=== PATIENT | female | born 1955 | race Caucasian/White ===

== ENCOUNTER → 2019-07-08 14:58 | Outpatient (CLI) | payer MEDICARE, SELFPAY ==
--- NOTE | ~2019-07-08 | XR_ITS ---
EXAMINATION: XR abdomen/kub 1V INDICATION: Migration of pancreatic stent TECHNIQUE: Supine views of the abdomen were obtained on 2 radiographs. COMPARISON: None FINDINGS: The bowel gas pattern is normal. No definite radiopaque stent is identified in the abdomen. There are no dilated loops of bowel. Rim calcification in the right upper quadrant with cholelithias is. IMPRESSION: 1. Pancreatic stent is not identified. Reviewed, dictated and finalized at location A.
== END ==
PROVIDERS: PCP Family Medicine
DX: T85.528A Displacement of other gastrointestinal prosthetic devices, implants and grafts, initial encounter (principal)
CPT/HCPCS: 74018

== ENCOUNTER → 2020-05-22 13:15 | Outpatient (CLI) | payer MEDICARE, SELFPAY ==
--- NOTE | ~2020-05-22 | XR_ITS ---
. EXAMINATION: XR facial bones min 3V DATE: 05/22/2020 14:11 INDICATION: Face injury. TECHNIQUE: 4 views of the facial bones were obtained. COMPARISON: PET/CT 12/06/2018 FINDINGS: There is leftward deviation of the nasal septum. No fracture. IMPRESSION: 1. No fracture. Reviewed, dictated and finalized at location A. ARCH ASSOCIATE IMPRESSION: 1. No fracture.
--- NOTE | ~2020-05-22 | XR_ITS ---
EXAMINATION: XR orbits min 4V DATE: 05/22/2020 14:11 INDICATION: Face injury. TECHNIQUE: 4 views of the orbits were obtained. COMPARISON: PET/CT 12/06/2018 FINDINGS: There is leftward deviation of the nasal septum. No fracture. IMPRESSION: 1. No fracture. Reviewed, dictated and finalized at location A. LOGY TEACHER IMPRESSION: 1. No fracture.
== END ==
PROVIDERS: PCP Family Medicine; Visit Provider Family Medicine
DX: Z91.81 History of falling (principal)
CPT/HCPCS: 70150; 70200

== ENCOUNTER 2021-07-29 11:53 | Emergency (ER) | payer MEDICARE, SELFPAY ==
[2021-07-29] VITALS (27 sets, daily range): BP systolic 115–162; BP diastolic 61–111; PULSE 79–111; RESP 16–28; TEMP 36.3; O2SAT 92–100
--- NOTE | ~2021-07-29 | XR_ITS ---
EXAMINATION: XR chest 1V portable EXAM DATE: 07/29/2021 12:08 INDICATION: SOB, sore throat. TECHNIQUE: Portable AP frontal chest x-ray was obtained. Comparison is made to prior examination from 10/09/2018. FINDINGS: Calcified left pleural plaques. The lungs are clear. There are no pleural effusions. Card iac silhouette is prominent but magnified on this AP technique. There is no pneumothorax suspected. The bones and soft tissues are unremarkable. There is no significant interval change. IMPRESSION: No acute cardiopulmonary findings. Reviewed, dictated and finalized at location A.
--- NOTE | 2021-07-29 11:56 | ECG_ITS ---
Measurements Intervals [place] Rate: 86 P: 37 OK: 136 QRS: -1 QRSD: 98 T: 38 QT: 351 QTc: 421 Interpretive Statements SINUS RHYTHM INCOMPLETE RIGHT BUNDLE BRANCH BLOCK [90+ ms QRS DURATION, TERMINAL R IN V1/V2, 40+ ms S IN I/aVL/V4/V5/V6] MINIMAL VOLTAGE CRITERIA FOR LVH, CONSIDER NORMAL VARIANT [MEETS CRITERIA IN ONE OF: R(aVL), S(V1), R(V5), R(V5/V6)+S(V1)] NO PREVIOUS ECG AVAILABLE FOR COMPARISON Electronically Signed On 07-29-2021 18:56:34 CDT by Lis Amos M.D.
[2021-07-29 12:19] LABS: Hematocrit 35.4 % (37.0-47.0); Hemoglobin 10.9 g/dL (12.0-15.0); Mean Corpuscular HGB Conc 30.8 g/dl (32-36); Mean Corpuscular Hemoglobin 26.3 pg (26-34); Mean Corpuscular Volume 85.3 fl (80-100); Mean Platelet Volume 9.6 fl (7.4-10.4); Platelet Count Result 292 k/mm3 (150-375); Red Blood Count 4.15 M/mm3 (4.2-5.4); White Blood Count 15.6 K/mm3 (4.5-10.0)
[2021-07-29 12:30] LABS: Alanine Aminotransferase 14 U/L (4-35); Albumin Level 3.7 g/dL (3.5-5.1); Alkaline Phosphatase 101 U/L (38-126); Anion Gap 6 mmol/L (8-16); Aspartate Amino Transferase 19 U/L (14-36); Bilirubin,Total 0.4 mg/dL (0.2-1.3); Blood Urea Nitrogen 27 mg/dL (7-17); Calcium 8.7 mg/dL (8.4-10.2); Carbon Dioxide 24 mmol/L (22-30); Chloride 109 mmol/L (98-107); Estimated CRCL calculation 66 ml/min; Estimated Glomerular Filt Rate 56; Glucose 176 mg/dL (65-110); Potassium 3.6 mmol/L (3.4-5.0); Sodium 139 mmol/L (137-145)
[2021-07-29 12:32] LABS: Band Neutrophils Percent 1 % (0-6); Basophils Absolute Manual 0.15 K/mm3 (0.0-0.1); Basophils Percent Manual 1 % (0-1); Eosinophils Absolute Manual 0.15 K/mm3 (0.02-0.5); Eosinophils Percent Manual 1 % (0-4); Lymphocytes Absolute Manual 0.46 K/mm3 (1.1-4.5); Monocytes Absolute Manual 0.15 K/mm3 (0.1-0.90); Monocytes Percent Manual 1 % (3-9); Neutrophils Absolute Manual 14.66 K/mm3 (1.7-7.2); Neutrophils Percent Manual 93 % (46-73); Platelet Estimate Adequate (Adequate); Total Cells Counted 100
[2021-07-29] MEDS: ALBUTEROL SULFATE NEB 2.5 MG/0.5 ML INH 15 MG INHALATION (12:51)
[2021-07-29] MEDS: IPRATROPIUM BR 0.02% INH SOLN 0.5 MG/2.5 ML VIAL 1.5 MG INHALATION (12:52)
--- NOTE | 2021-07-29 13:50 | ED.GENADULT ---
HPI - General Adult General Chief complaint: Upper Respiratory Infection Stated complaint: SOB Time Seen by Provider: 07/29/21 11:59 History of Present Illness HPI narrative: Patient is a 65-year-old female who presents ER with cough and dyspnea. Ongoing for 3 weeks. Reports she has been on a Z-Linus as well as doxycycline for possible pneumonia. She was also given prednisone 1 week ago. She is currently on a 12-day taper. No fevers or chills or sweats. Reports she has been using albuterol at home without improvement. No chest pain or pressure. Related Data Allergies Allergy/AdvReac Type Severity Reaction Status Date / Time morphine Allergy Unknown Unknown Verified 07/29/21 12:23 moxifloxacin Allergy Unknown Unknown Verified 07/29/21 12:23 nitrofurantoin Allergy Unknown Unknown Verified 07/29/21 12:23 Sulfa (Sulfonamide Allergy Unknown Unknown Verified 07/29/21 12:23 Antibiotics) Review of Systems Review of Systems: All systems reviewed & are unremarkable except as noted in HPI and below Constitutional: Constitutional: Denies chills, Denies fever(s) and Denies weakness ENT: Reports nasal congestion and Reports sore throat Cardiovascular: Cardiovascular: Denies chest pain, Denies rapid heart rate and Denies radiating jaw, neck or arm pain Respiratory: Respiratory: Reports cough, Reports dyspnea and Reports wheezing Gastrointestinal: Gastrointestinal: Denies abdominal pain, Denies nausea and Denies vomiting PMFSH Past Medical History Medical History (Updated 07/29/21 @ 16:17 by Jimbo Vee MD) Anxiety COPD (chronic obstructive pulmonary disease) Depression GERD (gastroesophageal reflux disease) IBS (irritable bowel syndrome) TIA (transient ischemic attack) Surgical History Surgical History (Updated 07/29/21 @ 14:06 by Jimbo Vee MD) H/O tubal ligation Social History Social History (Updated 07/29/21 @ 14:07 by Jimbo Vee MD) Social History: History of tobacco abuse Exam Narrative: GENERAL: Well-appearing, obese, and in no acute distress. HEAD: Normocephalic, atraumatic. EYES: PERRL and EOMI. ENT: Mucous membranes moist. CHEST: Expiratory wheezing with frequent coughing. No respiratory distress. HEART: Regular rate and rhythm. Normal peripheral pulses. EXTREMITIES: Normal range of motion. No edema. SKIN: Warm, dry, no rash. NEURO: Alert and oriented x3. PSYCH: Normal mood and affect. Course Course Emergency Course: Patient resting comfortably. Lungs clear after hour-long nebulizer treatment. Ambulatory without hypoxia. Patient is now requesting some Toradol and tizanidine's for backache. This will be provided. Discharge home. Vital Signs Vital signs: Vital Signs Temperature 97.3 F L 07/29/21 11:55 Pulse Rate 87 07/29/21 11:55 Respiratory Rate 16 07/29/21 11:55 Blood Pressure 136/86 07/29/21 11:55 Pulse Oximetry 96 07/29/21 11:55 Temperature 97.3 F L 07/29/21 11:55 Pulse Rate 79 07/29/21 16:50 Respiratory Rate 20 07/29/21 16:50 Blood Pressure 115/61 07/29/21 16:50 Pulse Oximetry 95 07/29/21 16:50 Medical Decision Making Vital Signs Vital Signs: Vital Signs Temperature 97.3 F L 07/29/21 11:55 Pulse Rate 87 07/29/21 11:55 Respiratory Rate 16 07/29/21 11:55 Blood Pressure 136/86 07/29/21 11:55 Pulse Oximetry 96 07/29/21 11:55 Temperature 97.3 F L 07/29/21 11:55 Pulse Rate 79 07/29/21 16:50 Respiratory Rate 20 07/29/21 16:50 Blood Pressure 115/61 07/29/21 16:50 Pulse Oximetry 95 07/29/21 16:50 Lab Data Result diagrams: 07/29/21 12:13 07/29/21 12:13 Labs: Lab Results 07/29/21 07/29/21 Range/Units 12:13 12:13 WBC 15.6 H (4.5-10.0) K/mm3 RBC 4.15 L (4.2-5.4) M/mm3 Hgb 10.9 L (12.0-15.0) g/dL Hct 35.4 L (37.0-47.0) % MCV 85.3 (80-100) fl MCH 26.3 (26-34) pg MCHC 30.8 L (32-36) g/dl RDW 18.0 H (11.5-14.5) % Pl
[2021-07-29] MEDS: KETOROLAC 15 MG/ML VIAL (*BKC) IV PUSH (16:49)
[2021-07-29] MEDS: TIZANIDINE HCL 2 MG TABLET 1 MG PO (16:50)
== END 2021-07-29 16:55 | disposition home or self-care (01) ==
PROVIDERS: Emergency Medicine; Emergency Provider Emergency Medicine; PCP Family Medicine
DX: J40 Bronchitis, not specified as acute or chronic (principal); J44.9 Chronic obstructive pulmonary disease, unspecified; K21.9 Gastro-esophageal reflux disease without esophagitis; K58.9 Irritable bowel syndrome, unspecified; Z86.73 Personal history of transient ischemic attack (TIA), and cerebral infarction without residual deficits; Z87.891 Personal history of nicotine dependence; I45.10 Unspecified right bundle-branch block
CPT/HCPCS: 36415; 71045; 80053; 85025; 93005; 94640; 96374; 99284; A9270; J1885

== ENCOUNTER 2021-11-29 11:19 | Emergency (ER) | payer MEDICARE, SELFPAY ==
[2021-11-29 11:24] VITALS: BP 157/92; PULSE 82; RESP 15; TEMP 36.7; O2SAT 99
[2021-11-29] MEDS: TETANUS,DIPHTHERIA,AC PERTUSSIS ADULT (0.5 ML) BOOSTRIX IM (13:04)
--- NOTE | 2021-11-29 13:05 | ED.WOUNDLAC ---
HPI - Wound/Laceration General Chief Complaint: Wound/Laceration Stated Complaint: laceration to R. leg Time Seen by Provider: 11/29/21 12:25 History of Present Illness HPI narrative: Patient is 66-year-old female with a history of lymphadenopathy here for evaluation of a skin tear to her right lower extremity. Patient states that she was using her walker this morning when she accidentally scraped her right lower extremity against the walker, leading to a skin tear. Bleeding controlled prior to arrival; no blood thinner use. She is unsure of her last tetanus. She states that whenever she gets the skin tears, she is placed on antibiotics. She denies any numbness or tingling in her feet, difficulty walking, fevers or chills. Related Data Allergies Allergy/AdvReac Type Severity Reaction Status Date / Time morphine Allergy Unknown Unknown Verified 11/29/21 13:28 moxifloxacin Allergy Unknown Unknown Verified 11/29/21 13:28 nitrofurantoin Allergy Unknown Unknown Verified 11/29/21 13:28 Sulfa (Sulfonamide Allergy Unknown Unknown Verified 11/29/21 13:28 Antibiotics) Review of Systems Review of Systems: Gen: Denies fevers or chills Eyes: Denies eye pain or visual change ENT: Denies congestion Respiratory: Denies shortness of breath or cough CV: Denies chest pain or palpitations GI: Denies abdominal pain nausea, emesis or diarrhea denies burning, urgency, frequency or hematuria Musculoskeletal: Denies back pain or muscle pain Neuro: Denies numbness, tingling, weakness or focal weakness Skin: Reports skin tear to right lower extremity Except as documented, all other systems reviewed and negative [facility] Past Medical History Medical History Anxiety COPD (chronic obstructive pulmonary disease) Depression GERD (gastroesophageal reflux disease) IBS (irritable bowel syndrome) TIA (transient ischemic attack) Surgical History Surgical History H/O tubal ligation Social History Social History (System 07/30/21 @ 15:08 by Santa Deshpande) Social History: History of tobacco abuse Exam Narrative: Gen: Alert, oriented, no acute distress. Eyes: EOMI, no icterus Pulm: Respirations even and unlabored, symmetric thorax expansion, no audible stridor or visible cyanosis CV: Regular rate per telemetry GI: No distension, no voluntary/involuntary guarding Neuro: AOx4, moves all extremities without apparent difficulty or weakness, follows commands MSK: No bony tenderness to palpation along tibia or fibula. Skin: Patient has a 2 x 3 cm V-shaped superficial skin tear to lateral aspect of right lower extremity with no active bleeding. Psych: Normal mood/affect, insight/judgement good, adequate fund of knowledge, recent/remote memory intact Course Vital Signs Vital signs: Vital Signs Temperature 98.0 F 11/29/21 11:24 Pulse Rate 82 11/29/21 11:24 Respiratory Rate 15 11/29/21 11:24 Blood Pressure 157/92 H 11/29/21 11:24 Pulse Oximetry 99 11/29/21 11:24 Oxygen Delivery Room Air 11/29/21 11:24 Temperature 98.0 F 11/29/21 11:24 Pulse Rate 82 11/29/21 11:24 Respiratory Rate 15 11/29/21 11:24 Blood Pressure 157/92 H 11/29/21 11:24 Pulse Oximetry 99 11/29/21 11:24 Oxygen Delivery Room Air 11/29/21 11:24 MDM - Wound/Laceration MDM Narrative Medical decision making narrative: 66-year-old female here for evaluation of a 2x3 cm V-shaped skin tear to her right lower extremity sustained from her walker earlier today. She has no underlying bony tenderness or pain to suggest underlying fracture. The wound was irrigated in the ED, there does not appear to be anything to repair with sutures as patient's skin is quite thin. Patient will benefit from non-adherent dressing and advised on wound care, and to follow up with her PCP. Her tetanus was updated in the ED, And She Tells Me That
[2021-11-29] MEDS: CEPHALEXIN 500 MG CAPSULE PO (13:26)
[2021-11-29] MEDS: ACETAMINOPHEN 325 MG TABLET 650 MG PO (13:26)
== END 2021-11-29 13:54 | disposition home or self-care (01) ==
PROVIDERS: Emergency Provider Emergency Medicine; PCP Family Medicine
DX: S81.811A Laceration without foreign body, right lower leg, initial encounter (principal); Z23 Encounter for immunization; J44.9 Chronic obstructive pulmonary disease, unspecified; K58.9 Irritable bowel syndrome, unspecified; K21.9 Gastro-esophageal reflux disease without esophagitis; Z86.73 Personal history of transient ischemic attack (TIA), and cerebral infarction without residual deficits; Z87.891 Personal history of nicotine dependence; W22.8XXA Striking against or struck by other objects, initial encounter
CPT/HCPCS: 90471; 90715; 99283; A9270

== ENCOUNTER 2023-11-15 12:23 | Outpatient (CLI) | payer MEDICARE, SELFPAY ==
--- NOTE | ~2023-11-15 | DEXA_ITS ---
Bone Density Report Name: LAMAR RUELAS Age: 68 Sex: Female Ethnicity: White Date of : 1955 Indication: postmenopausal; screening for osteoporosis; height loss; inflammatory bowel disease; asthma or emphysema; secondary osteoporosis; Referring Provider: YUSUF, REJI Contreras Study: Bone densitometry was performed. Exam Date: November 15, 2023 Accession number: [id number] Bone Density: Region BMD T-score Z-score Classification AP Spine(L1-L4) 0.974 -0.7 1.2 Normal Femoral Neck (Left) 0.572 -2.5 -0.9 Osteoporosis Total Hip (Left) 0.662 -2.3 -1.0 Osteopenia Femoral Neck (Right) 0.625 -2.0 -0.4 Osteopenia Total Hip (Right) 0.778 -1.3 0.0 Osteopenia Total Hip Mean 0.720 -1.8 -0.5 Osteopenia World Health Organization criteria for BMD impression classify patients as: Normal (T-score at or above -1.0), Osteopenia (T-score between -1.0 and -2.5), or Osteoporosis (T-score at or below -2.5). 10-year Fracture Risk: FRAX not reported because: Some T-score for Spine Total or Hip Total or Femoral Neck at or below -2.5 Clinical Information Provided by Patient: Smokes Has secondary osteoporosis Has used the following medications: Vitamin D Has the following medical conditions: Asthma or Emphysema, Inflammatory bowel diseases, COPD Patient maximum height was 71.0 Menopause Age: 50 No regular weight bearing exercise Onset of menses at age 17 Number of children 2 Impression: The patient has osteoporosis, based on the Left Femoral Neck T-score. The patient has risk factors, including: smoking. Discussion: INCREASED RISK OF FRACTURE. BONE DENSITY IS UNDESIRABLY LOW AT ONE OR MORE SKELETAL SITES, CONSISTENT WITH POSTMENOPAUSAL OSTEOPOROSIS. This patient's lowest T-score meets the World Health Organization's (WHO) criteria for osteoporosis at one or more sites (T-score -2.5 or below). In untreated patients, the risk of osteoporotic fracture increases approximately two-fold for each 1.0 SD decrease in T-score. Low bone density is not the only risk factor for fracture; also consider factors such as patient's age, frailty or poor health, risk of falling, risk of injury, previous osteoporotic fracture, family history of osteoporosis, cigarette smoking, low body weight, etc. Not everyone with low bone mineral density has osteoporosis; osteomalacia and other metabolic bone disorders should also be considered. Patients who have osteoporosis should be evaluated for specific diseases and conditions (secondary causes) that may cause or contribute to bone loss. The [place] [employer] Clinical Endocrinologists (AACE) and National Osteoporosis Foundation (NOF) recommend pharmacologic intervention for all postmenopausal women whose T-score is in this range. The patient should follow a healthful lifestyle (good
== END 2023-11-15 12:24 | disposition home or self-care (01) ==
PROVIDERS: PCP Family Medicine; Visit Provider Nurse Practitioner Family
DX: M81.0 Age-related osteoporosis without current pathological fracture (principal); M85.89 Other specified disorders of bone density and structure, multiple sites
CPT/HCPCS: 77080

== ENCOUNTER 2024-01-08 11:35 | Outpatient (CLI) | payer MEDICARE, MEDICAID, SELFPAY ==
--- NOTE | ~2024-01-08 | MR_ITS ---
EXAMINATION: MR brain/brain stem wo con DATE: 01/08/2024 13:14 INDICATION: Syncope and collapse. TECHNIQUE: Magnetic resonance imaging (MRI) of the brain and brainstem was performed without intraven ous contrast. COMPARISON: Brain MRI 10/09/2014 FINDINGS: There is no intracranial hemorrhage, acute infarction, or abnormal intracranial mass lesion . There is a focus of increased T2-weighted signal intensity in the left parietal lobe deep white mat ter, which is normal as an isolated finding. The ventricles are normal in size. The paranasal sinuses are clear. There are likely changes of ocular lens replacement surgeries. The mastoid air cells are normal. IMPRESSION: 1. Normal brain. Reviewed, dictated and finalized at location A. IMPRESSION: 1. Normal brain.
[2024-01-08 13:12] LABS: Basophils Absolute Auto 0.1 K/mm3 (0.0-0.1); Basophils Percent Auto 0.8 % (0.2-1.2); Eosinophils Absolute Auto 0.4 K/mm3 (0-0.3); Eosinophils Percent Auto 2.7 % (0-4.4); Hematocrit 39.9 % (37.0-47.0); Hemoglobin 12.2 g/dL (12.0-15.0); Immature Granulocyte Absolute 0.31 K/mm3 (0.00-0.031); Immature Granulocyte Percent A 2.1 % (0-0.5); Lymphocytes Absolute Auto 1.56 K/mm3 (0.9-3.2); Lymphocytes Percent Auto 10.5 % (18.3-44.2); Mean Corpuscular HGB Conc 30.6 g/dl (32-36); Mean Corpuscular Volume 84.9 fl (80-100); Monocytes Absolute Auto 0.9 K/mm3 (0.1-0.6); Monocytes Percent Auto 5.9 % (2.6-8.5); Neutrophils Absolute Auto 11.6 K/mm3 (1.3-6.7); Platelet Count Result 334 k/mm3 (150-375); Red Cell Distribution Width 17.3 % (11.5-14.5); White Blood Count 14.9 K/mm3 (4.5-10.0)
[2024-01-08 13:23] LABS: Alanine Aminotransferase 12 U/L (6-35); Albumin Level 3.6 g/dL (3.5-5.1); Alkaline Phosphatase 98 U/L (38-126); Anion Gap 1 mmol/L (4-12); Aspartate Amino Transferase 17 U/L (14-36); Bilirubin,Total 0.4 mg/dL (0.2-1.3); Blood Urea Nitrogen 28 mg/dL (7-17); Calcium 8.8 mg/dL (8.4-10.2); Carbon Dioxide 29 mmol/L (22-30); Chloride 102 mmol/L (98-107); Cholesterol 147 mg/dL (0-200); Estimated Glomerular Filt Rate 50; Glucose 138 mg/dL (65-110); HDL Direct 57 mg/dL; Magnesium 2.1 mg/dL (1.6-2.3); Potassium 3.8 mmol/L (3.4-5.0); Sodium 132 mmol/L (137-145); Triglycerides 138 mg/dL (<150)
[2024-01-08 13:36] LABS: LDL Cholesterol Direct 64 mg/dL
[2024-01-08 13:56] LABS: Cortisol Random 2.96 ug/dL
[2024-01-08 14:24] LABS: Iron 50 ug/dL (37-170)
[2024-01-08 14:35] LABS: Percent Iron Saturation 19 % (20-50)
[2024-01-08 14:52] LABS: Hepatitis C Virus Antibody Negative (Negative)
[2024-01-09 12:48] LABS: Hepatitis B DNA PCR NOT DETECTED (NOT DETECTED); Hepatitis B DNA PCR NOT DETECTED Log IU/mL (NOT DETECTED)
[2024-01-10 11:33] LABS: NIL 0.02 IU/mL; Quantiferon TB Plus, 1T NEGATIVE (NEGATIVE)
[2024-01-11 05:49] LABS: Lead, Blood <1.0 mcg/dL (<3.5)
[2024-01-11 15:17] LABS: Collection Sample Venous
--- NOTE | 2024-01-12 10:59 | WPDHOLTEREM ---
Holter/Event Monitor Holter/Event Monitor Date of procedure: 01/08/24 Holter/Event Procedure: 48 Hr Holter Monitor Indications: Syncope Conclusion: 1. 48 hour holter monitor on 01/08/24. 2. Predominant rhythm is sinus rhythm. HR range 58-143 bpm; average HR 86 bpm. 3. There are 124 premature supraventricular complexes and 2 supraventricular couplets. There is 1 episode of atrial tachycardia at 124 bpm lasting 4 beats. 4. There are 123 premature ventricular complexes. No ventricular tachycardia. 5. No sinoatrial or atrioventricular blocks. No significant pauses greater than 2 seconds. 6. No symptoms available for correlation.
== END 2024-01-08 11:36 | disposition home or self-care (01) ==
PROVIDERS: PCP Nurse Practitioner Family; Referring Provider Registered Nurse; Visit Provider Nurse Practitioner Family
DX: D64.9 Anemia, unspecified (principal); J44.9 Chronic obstructive pulmonary disease, unspecified; K21.9 Gastro-esophageal reflux disease without esophagitis; M81.0 Age-related osteoporosis without current pathological fracture; R55 Syncope and collapse; Z77.011 Contact with and (suspected) exposure to lead; L40.9 Psoriasis, unspecified; M62.838 Other muscle spasm
CPT/HCPCS: 36415; 70551; 80053; 80061; 82306; 82533; 82607; 83540; 83550; 83655; 83735; 84443; 85025; 86480; 86803; 87517; 93225; 93226

== ENCOUNTER 2024-01-30 12:50 | Outpatient (CLI) | payer MEDICARE, MEDICAID, SELFPAY ==
--- NOTE | ~2024-01-30 | US_ITS ---
EXAMINATION: US venous doppler LE RT DATE: 01/30/2024 13:23 INDICATION: Other specified soft tissue disorders. Right lower limb swelling and edema. TECHNIQUE: Grayscale ultrasound images without and with compression and Doppler ultrasound images of the right lower extremity veins were obtained. COMPARISON: Ultrasound 10/18/2013 FINDINGS: The visualized portions of right common femoral vein, profunda (deep) femoral vein, femoral vein, pop liteal vein, peroneal veins, posterior tibial veins, and greater saphenous vein outflow are patent. IMPRESSION: 1. No deep venous thrombosis. Reviewed, dictated and finalized at location A.
== END 2024-01-30 12:51 | disposition home or self-care (01) ==
LOC: ANHIMG 12:51
PROVIDERS: PCP Nurse Practitioner Family; Visit Provider Family Medicine
DX: M79.89 Other specified soft tissue disorders (principal)
CPT/HCPCS: 93971

== ENCOUNTER 2024-05-20 12:37 | Outpatient (CLI) | payer MEDICARE, MEDICAID, SELFPAY ==
--- OUTSIDE RECORDS SUMMARY | 2024-05-20 13:14 | XMS_ITS | Referral Summary ---
Author Organization [facility] Address [address] [place] [address] Care Team Providers Care Network Operations Lead Name Role Phone Jasmine Colorado MD Primary Care Provider + Viridiana Reyez RN Unavailable Unavailab Joseph Jade MD Unavailable Virginia Pompa NP Unavailable [phone] Encounters Date Type Department Care Team Description 04/30/2024 Telephone [facility] Oncology [address] [place] [address] [address] [place] [address] Nelida Macias, MANAGER GOVERNMENT 04/22/2024 Orders Only [facility] Oncology [address] [place] [address] [address] [place] [address] Rocío Barajas, RN Iron deficiency anemia due to chronic blood loss (Primary Dx) from Last 3 Months Allergies Active Allergy Reactions Criticality Noted Date Comments Morphine Hallucinations Medium Moxifloxacin Itching,Nausea only,Rash Medium Nitrofurantoin Monohyd/M-Cryst Hives Medium 01/08/2019 Omeprazole Nausea & Vomiting Low 06/05/2019 [place] terrible. Tolerates nexium Sulfa (Sulfonamide Antibiotics) Itching,Rash Medium Medications SYMBICORT 80-4.5 mcg/actuation inhaler 1 puff 2 (two) times a day 8 Active escitalopram (LEXAPRO) 5 mg tablet daily Takes an additional dose in the afternoon sometimes 8 Active HYDROcodone-acetam inophen (NORCO) 10-325 mg per tabletIndications: Pain 0 8 Active albuterol sulfate (PROAIR HFA INHAL) Inhale. A ctive tiotropium Br/olodaterol HCl (STIOLTO RESPIMAT INHAL) Inhale 2 puffs daily Active zolpidem (AMBIEN) 10 mg tablet zolpidem 10 mg tablet 1 po qhs prn insomnia Active montelukast (SINGULAIR) 10 mg tablet daily Active tiZANidine (ZANAFLEX) 4 mg tablet tizanidine 4 mg tablet TAKE 2 TABLETS BY MOUTH THREE TIMES DAILY NEEDED Active ondansetron ODT (ZOFRAN-ODT) 4 mg disintegrating tabletIndications: nausea and vomiting Take 2 tablets (8 mg total) by mouth every 12 (twelve) hours as needed for nausea or vomiting 10 tablet 1 0 Active etodolac (LODINE) 500 mg tablet Take 1 tablet (500 mg total) by mouth 2 (two) times a day as needed 1 Active folic acid (FOLVITE) 400 mcg tablet folic acid 400 mcg tablet Take 1 tablet every day by oral route. Active Myrbetriq 50 mg tablet extended release 24 hr Take 1 tablet (50 mg total) by mouth daily [address] (NexIUM) 40 mg capsule Take 1 capsule (40 mg total) by mouth daily 1 Active cholecalciferol (VITAMIN D-3) 1,000 unit capsule Take 1 capsule (1,000 Units total) by mouth daily Active cyanocobalamin (Vitamin B-12) 1,000 mcg/mL injection 1 mL (1,000 mcg total) Active ALPRAZolam (XANAX) 0.5 mg tablet 2 Active Active Problems Patient Care Coordination No te Formatting of this note migh t be different from the original. Ms. Sarah Milner is a 63-year-old with a lung nodule. On 11/19/2018 the patient underwent a chest CT without contrast which revealed a 1.5 cm right upper lobe lung nodule that was mostly ground-glass in attenuation but had a slightly more solid 6 mm central component. Additional findings included a subacute right forced through seventh rib fracture. On 12/06/2018 the patient underwent a PET scan which revealed the 15 mm part solid lung nodule without increased activity. Additional findings included a 7.2 cm pancreatic mass with increased activity, most likely a neuroendocrine tumor. There was chronic mild retroperitoneal and pelvic lymphadenopathy with increased activity, likely reactive. Patient is scheduled for pulmonary function testing prior to her appointment today. Patient presents today for further surgical evaluation. 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 Overview (05/13/2019): Added automatically from request for surgery [id number] Assessment & Plan (06/06/2019 3:17 PM PUBLIC MESSAGE SERVICE SUPERVISOR): S/p partial resection today --GI to follow path --Pancreas protocol CT completed --Diet advanced to low fat --Follow up with surgery on Monday Assessment & Plan (06/05/2019 8:21 PM PUBLIC MESSAGE SERVICE SUPERVISOR): S/p partial resection today --GI to follow path --Pancreas protocol CT today --NPO for 4 hours, then clear liquids today, advance in AM Pancreatic mass 01/11/2019 Overview (01/11/2019): Added automatically from request for surgery [id number] History of total knee replacement 12/18/2014 Knee pain 10/01/2014 Immunizations Name Administration Dates Next Due Influenza, Quadrivalent, Spl it, Preservative Free, Intramuscular 02/10/2021 Influenza, Unspecified 01/22/2019,01/22/2019,03/2013 Moderna SARS-CoV-2 Monovalen t Vaccination (12+ YRS) 10/03/2020,09/05/2020 Social History Tobacco Use Types Packs/Day Years Used Date Smoking Tobacco: Some Days Cigarettes 0.4 43 Smokeless Tobacco: Never Tobacco Cessation:Ready to Q uit: No; Counseling Given: No Comments:Patient has cut back to < 6 cigarettes per day Alcohol Use Standard Drinks/Week Comments No 0 (1 standard drink = 0.6 oz pur e alcohol) AUDIT-C Answer Date Recorded Q1: How often do you have a drink containing alc ohol? Never 12/01/2020 Average Number of Drinks Not on file 021 Frequency of Binge Drinking Not on file 11/22 Personal Safety Answer Date Recorded Getting School Help Needed Not on file 05/12 Comments No Sex and Gender Information Value Date Recorded Sex Assigned at Not on file Legal Sex Female 5:51 AM PUBLIC MESSAGE SERVICE SUPERVISOR Gender Identity Not on file Sexual Orientation Not on file Last Filed Vital Signs Vital Sign Reading Time Taken Comments Blood Pressure 104/68 09/06/2022 2:10 PM CDT Pulse 86 09/06/2022 1:08 PM CDT Temperature 36.9 ??C (98.4 ??F) 09/06/2022 1:08 PM CD T Respiratory Rate 20 09/06/2022 1:08 PM CDT Oxygen Saturation 99% 09/06/2022 1:08 PM CDT Inhaled Oxygen Concentration - - Weight 107.8 kg (237 lb 9.6 oz) 09/06/2022 1:08 PM CDT no shoes Height 180.3 cm (5' 11 ) 09/06/2022 1:08 PM CDT Body Mass Index 33.14 09/06/2022 1:08 PM CDT Plan of Treatment Not on file Medical Devices Implanted Type Area Sports Team Manager Device Identifier Shelf Expiration Date Model / Serial / Lot [employer]Stock [id number] Ruby Flexi-Stent 5fr 9cm Small Pigtail Flexible .035in Stent - [id number] Implanted:Qty: 1 on 06/05/2019 by Joseph Payan MD at [facility] [employer] 12/23/2023 65 [id number] / / [id number] [place] [address] MEDICARE SOLUTIONS [facility] Address: [address] [address] [place] [address] [facility] HMO REF [facility] Address: [address] [address] [place] [address] [employer] [facility] Address: [address] [address] [place] [address] [employer] [facility] Address: [address] [address] [place] [address] Advance Directives For more information, please contact: [phone] * Full Code (Latest Code Status on File) Date Activated Date Inactivated Comments 06/05/2019 11:58 AM 06/06/2019 5:55 PM * Full Code Date Activated Date Inactivated Comments 02/07/2019 11:33 AM 02/07/2019 8:28 PM * Full Code Date Activated Date Inactivated Comments 01/15/2019 12:34 PM 01/15/2019 7:04 PM Care Teams Network Operations Lead Relationship Specialty Start Date End Date Jasmine Colorado MD PCP - General 09/05/16 Viridiana Reyez RN Registered Nurse Gastroenterology 01/11/19 Joseph Payan MD Referring Physician Gastroenterology 06/06/19 Virginia Pompa, APPAREL DESIGNER [address] [place] [id number] Nurse Practitioner Medical Oncology 08/26/22
--- OUTSIDE RECORDS SUMMARY | 2024-05-20 13:14 | XMS_ITS | Clinical Summary ---
Author Organization [facility] Address [address] [place] [address] Care Team Providers Care Brewery Representative Name Role Phone Jasmine Colorado MD Primary Care Provider + Viridiana Reyez RN Unavailable Unavailab Joseph Jade MD Unavailable Virginia Pompa NP Unavailable [phone] Allergies Active Allergy Reactions Criticality Noted Date Comments Morphine Hallucinations Medium Moxifloxacin Itching,Nausea only,Rash Medium Nitrofurantoin Monohyd/M-Cryst Hives Medium 01/08/2019 Omeprazole Nausea & Vomiting Low 06/05/2019 [place] terrible. 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): S/p partial resection today --GI to follow path --Pancreas protocol CT completed --Diet advanced to low fat --Follow up with surgery on Monday Assessment & Plan (06/05/2019 8:21 PM 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): S/p partial resection today --GI to follow path --Pancreas protocol CT today --NPO for 4 hours, then clear liquids today, advance in AM Pancreatic mass 01/11/2019 Overview (01/11/2019): Added automatically from request for surgery [id number] History of total knee replacement 12/18/2014 Knee pain 10/01/2014 Encounters Date Type Department Care Team Description 04/30/2024 Telephone [facility] On[facility] [facility] [address] [place] [address] Nelida Macias [facility] 04/22/2024 Orders Only [facility] On[facility] [address] [facility] [address] [place] [address] Rocío Barajas, RN Iron deficiency anemia due to chronic blood loss (Primary Dx) from Last 3 Months Immunizations Name Administration Dates Next Due Influenza, Quadrivalent, Spl it, Preservative Free, Intramuscular 02/10/2021 Influenza, Unspecified 01/22/2019,01/22/2019,03/2013 Moderna SARS-CoV-2 Monovalen t Vaccination (12+ YRS) 10/03/2020,09/05/2020 Surgical History Surgery Date Site/Laterality Comments REPLACEMENT TOTAL KNEE 04/24/2014 - 04/23/2015 Right TUBAL LIGATION 04/24/1983 - 04/23/1984 INTRAOCULAR LENS IMPLANT, SECONDARY Bilateral L-06/16/22 R-06/30/22 Medical History Medical History Date Comments Iron deficiency anemia Polymyalgia rheumatica (CMS/HCC) (HCC) Psoriasis Neuropathy (CMS/HCC) Rheumatic fever COPD (chronic obstructive pulmonary disease) (HC C) Asthma Immunosuppressive-induced hemolytic uremic syndr ome (HCC) Irritable bowel syndrome Hiatal hernia Chronic constipation Chronic diarrhea Pancreatic cancer (HCC) Lung cancer (HCC) Chronic bronchitis (HCC) Stroke (HCC) Arthritis History of transfusion Osteoporosis Family History Medical History Relation Name Comments Lung cancer Father Lymphoma Father Bone cancer Maternal Grandfather Brain Aneurysm Maternal Grandmother Leukemia Mother Lung cancer Paternal Grandfather Relation Name Status Comments Father Maternal Grandfather Maternal Grandmother Mother Paternal Grandfather Social History Tobacco Use Types Packs/Day Years [...] on file Legal Sex Female 5:51 AM 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 Gender Identity Not on file Sexual Orientation Not on file Obstetrics History Last Filed Vital Signs Vital Sign Reading [...] 09/06/2022 1:08 PM CDT Plan of Treatment Health Maintenance Due Date Last Done Comments Breast Cancer Screening-Mammogram 1956 Colon Cancer Screening-Colonoscopy 1956 Depression Screening 1956 Fall Risk Assessment 1956 Hepatitis C Screening 1956 Osteoporosis Screening-Bone Density Scan 1956 Hepatitis B Screening 1974 Zoster Vaccine (1 of 2) 2006 Well Visit 65+ 2021 Covid-19 Vaccine (3 - 2023-2 5 season) 2023 10/03/2020, 09/05/2020 Influenza Vaccine (#1) 2023 , 02/11/2019, 01/22/2019, Additional history exists DTaP/Tdap/Td Vaccine (3 - Td or Tdap) 11/30/2031 11/29/2021, 07/13/2015 Pneumococcal vaccine 65+ Completed 023, 06/02/2016, 02/24/2015 Medical Devices Implanted Type Area Supervisor Melt House Device Identifier Shelf Expiration Date Model / Serial / Lot [employer] 6555 Ruby Flexi-Stent 5fr 9cm Small Pigtail Flexible .035in Stent - [id number] Implanted:Qty: 1 on 06/05/2019 by Joseph Payan MD at [facility] [employer] 12/23/2023 66 55 / / [id number] Insurance [employer] IDPA [facility] MDCR HMO REF [place] [id number] [employer] Advance Directives For more information, please contact: [phone] * Full Code (Latest Code Status on File) Date Activated Date Inactivated Comments 06/05/2019 11:58 AM 06/06/2019 5:55 PM * Full Code Date Activated Date Inactivated Comments 02/07/2019 11:33 AM 02/07/2019 8:28 PM * Full Code Date Activated Date Inactivated Comments 01/15/2019 12:34 PM 01/15/2019 7:04 PM Care Teams Brewery Representative Relationship Specialty Start Date End Date Jasmine Colorado MD PCP - General 5/15/17 Viridiana Reyez, RN Registered Nurse Gastroenterology 01/11/19 Joseph Payan MD Referring Physician Gastroenterology 06/06/19 Virginia Pompa, RANDY [address] [place] [address] Nurse Practitioner Medical Oncology 08/26/22
--- OUTSIDE RECORDS SUMMARY | 2024-05-20 13:14 | XMS_ITS | Data Portability ---
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 Not available 09/14/2023 16:19:44 Plan of Treatment Reminders Order Date Submit Date Provider Last Modified By Organization Details Last Modified Time Details Appointments Follow Up 15 2024 01:15P Liz Mike, PMHNP Not available Not available Not available Lab vitamin D, 25-hydrox y, total, serum [address] (Lab), [address] [place], [address], 10/20/2023 15:07:08 TSH, serum or plasma [address] (Lab), [address] [place], [address], 10/20/2023 15:06:29 CBC [address] (Lab), [address] [place], [address], 10/20/2023 15:07:22 Referral None recorded. Procedures None recorded. Surgeries None recorded. Imaging DEXA - *Please call pt to schedule* 2023 024 [email or web address] [address] [facility], [address], [facility] [address], [place], [address], 11/22/2023 08:56:16 Medication Orders ketorolac 30 mg/mL (1 mL) injection solution 2023 024 [id number] Not available 12/23/2023 01:05:05 triamcino lone acetonide 40 mg/mL suspensio n for injection 2023 024 [id number] 63 Not available 12/23/2023 01:05:07 oxycodone -acetamin ophen 10 mg-325 mg tablet 2023 [facility] [address] [place], [address], 10/20/2023 14:33:33 cyanocoba mina (vit B-12) 1,000 mcg/mL injection solution 2023 024 [id number] 63 Not available 12/23/2023 01:05:04 Patient TargetsNo targets recorded. Patient InstructionsNo instructions recorded. Reason for Referral None Reported. Results Created Date Observation Date Name Description Value Unit Range Abnormal Flag Note LastModifiedBy Organization Detail LastModifiedTime 09/28/19 24 09/28/2023 DRUG MONIT OR, PANEL 3, W/CON F, URINE amphetamines NEGATI VE NG/mL <500 Not Available [employer] [facility] [address] [place], [address], 09/28/2023 13:02:51 09/28/19 24 09/28/2023 DRUG MONIT OR, PANEL 3, W/CON F, URINE benzodiazepi gino NEGATI VE NG/mL <100 Not Available [facility] [facility] [address] [place], [address], 09/28/2023 13:02:51 09/28/19 24 09/28/2023 DRUG MONIT OR, PANEL 3, W/CON F, URINE cocaine metabolite NEGATI VE NG/mL <150 Not Available [address] , [place], [address], 09/28/2023 13:02:51 09/28/19 24 09/28/2023 DRUG MONIT OR, PANEL 3, W/CON F, URINE marijuana metabolite NEGATI VE NG/mL <20 Not Available [address] , [place], [address], 09/28/2023 13:02:51 09/28/19 24 09/28/2023 DRUG MONIT OR, PANEL 3, W/CON F, URINE opiates NEGATI VE CONFIR MED NG/mL <100 Not Available [address] [place], [address], 09/28/2023 13:02:51 09/28/19 24 09/28/2023 DRUG MONIT OR, PANEL 3, W/CON F, URINE codeine NEGATI VE NG/mL <50 Not Available [address] [facility] [place], [address], 09/28/2023 13:02:51 09/28/19 24 09/28/2023 DRUG MONIT OR, PANEL 3, W/CON F, URINE hydrocodone NEGATI VE NG/mL <50 Not Available [address] [place], [address], 09/28/2023 13:02:51 09/28/19 24 09/28/2023 DRUG MONIT OR, PANEL 3, W/CON F, URINE hydromorphon e NEGATI VE NG/mL <50 Not Available [address] [place], [address], 09/28/2023 13:02:51 09/28/19 24 09/28/2023 DRUG MONIT OR, PANEL 3, W/CON F, URINE morphine NEGATI VE NG/mL <50 Not Available [address] [place], [address], 09/28/2023 13:02:51 09/28/19 24 09/28/2023 DRUG MONIT OR, PANEL 3, W/CON F, URINE norhydrocodo ne NEGATI VE NG/mL <50 Not Available [address] [place], [address], 09/28/2023 13:02:51 09/28/19 24 09/28/2023 DRUG MONIT OR, PANEL 3, W/CON F, URINE opiates comments See LDT Notes Not Available [address] , [place], [address], 09/28/2023 13:02:51 09/28/19 24 09/28/2023 DRUG MONIT OR, PANEL 3, W/CON F, URINE oxycodone POSITI VE NG/mL <100 abnormal Not Available [address] [place], [address], 09/28/2023 13:02:51 09/28/19 24 09/28/2023 DRUG MONIT OR, PANEL 3, W/CON F, URINE noroxycodone 2495 NG/mL <50 high Not Available [address] [place], [address], 09/28/2023 13:02:51 09/28/19 24 09/28/2023 DRUG MONIT OR, PANEL 3, W/CON F, URINE oxycodone 2054 NG/mL <50 high Not Available [address] [place], [address], 09/28/2023 13:02:51 09/28/19 24 09/28/2023 DRUG MONIT OR, PANEL 3, W/CON F, URINE oxymorphone 426 NG/mL <50 high Not Available [address] [place], [address], 09/28/2023 13:02:51 09/28/19 24 09/28/2023 DRUG MONIT OR, PANEL 3, W/CON F, URINE oxycodone comments See Oxyco done Notes , LDT Notes Not Available [address] [place], [address], 09/28/2023 13:02:51 09/28/19 24 09/28/2023 DRUG MONIT OR, PANEL 3, W/CON F, URINE creatinine 136.4 mg/dL > or = 20.0 Not Available [address] [place], [address], 09/28/2023 13:02:51 09/28/19 24 09/28/2023 DRUG MONIT OR, PANEL 3, W/CON F, URINE pH 6.3 4.5-9. 0 Not Available [address] [place], [address], 09/28/2023 13:02:51 09/28/19 24 09/28/2023 DRUG MONIT OR, PANEL 3, W/CON F, URINE oxidant NEGATI VE mcg/m L <200 Not Available [address] [place], [address], 09/28/2023 13:02:51 09/28/19 24 09/28/2023 DRUG MONIT ORING TEMPL ATE notes and comments This drug testi ng is for medic al treat ment only. Rayne sis was perfo rmed as non-f orens ic testi ng and these resul ts shoul d be used only by healt hcare provi ders to rende r diagn osis or treat ment, or to monit or progr ess of medic al condi tions . Oxyco done Notes : Oxyco done, Norox ycodo ne, Oxymo rphon e detec marcello is consi stent with the use of the drug Oxyco done. Oxymo rphon e detec marcello is consi stent with the use of the drug Oxymo rphon e. Oxymo rphon e can be a presc ribed drug and is also a metab olite of Oxyco done. LDT Notes : Confi rmati on tests were devel oped and their rayne tical perfo rmanc e damon cteri stics have been deter mined by [employer] [facility] [employer]. It has not been clear ed or appro corbin by the FDA. This assay has been valid ated pursu ant to the CLIA regul ation s and is used for clini theresa purpo ses. Healt hcare Provi ders needi ng Inter preta tion jovani tance , pleas e conta ct us at 1.877 .40.R XTOX (1.87 [phone] .9869 ) M-F, 8am to 10pm EST Not Available [facility] [address] [place], [address], 09/28/2023 13:02:52 09/28/19 24 09/28/2023 DRUG MONIT OR, PANEL 3, W/CON F, URINE amphetamines NEGATI VE NG/mL <500 Not Available [facility] [address] [address] [place], [address], 09/28/2023 13:03:56 09/28/19 24 09/28/2023 DRUG MONIT OR, PANEL 3, W/CON F, URINE benzodiazepi gino NEGATI VE NG/mL <100 Not Available [facility] [address] [address] [place], [address], 09/28/2023 13:03:56 09/28/19 24 09/28/2023 DRUG MONIT OR, PANEL 3, W/CON F, URINE cocaine metabolite NEGATI VE NG/mL <150 Not Available [facility] [address] [address] [place], [address], 09/28/2023 13:03:56 09/28/19 24 09/28/2023 DRUG MONIT OR, PANEL 3, W/CON F, URINE marijuana metabolite NEGATI VE NG/mL <20 Not Available [address], [place], [address], 09/28/2023 13:03:56 09/28/19 24 09/28/2023 DRUG MONIT OR, PANEL 3, W/CON F, URINE opiates NEGATI VE CONFIR MED NG/mL <100 Not Available [address], [place], [address], 09/28/2023 13:03:56 09/28/19 24 09/28/2023 DRUG MONIT OR, PANEL 3, W/CON F, URINE codeine NEGATI VE NG/mL <50 Not Available [address], [place], [address], 09/28/2023 13:03:56 09/28/19 24 09/28/2023 DRUG MONIT OR, PANEL 3, W/CON F, URINE hydrocodone NEGATI VE NG/mL <50 Not Available [address], [place], [address], 09/28/2023 13:03:56 09/28/19 24 09/28/2023 DRUG MONIT OR, PANEL 3, W/CON F, URINE hydromorphon e NEGATI VE NG/mL <50 Not Available [address], [place], [address], 09/28/2023 13:03:56 09/28/19 24 09/28/2023 DRUG MONIT OR, PANEL 3, W/CON F, URINE morphine NEGATI VE NG/mL <50 Not Available [address], [place], [address], 09/28/2023 13:03:56 09/28/19 24 09/28/2023 DRUG MONIT OR, PANEL 3, W/CON F, URINE norhydrocodo ne NEGATI VE NG/mL <50 Not Available [address], [place], [address], 09/28/2023 13:03:56 09/28/19 24 09/28/2023 DRUG MONIT OR, PANEL 3, W/CON F, URINE opiates comments See LDT Notes Not Available [address], [address], 09/28/2023 13:03:56 09/28/19 24 09/28/2023 DRUG MONIT OR, PANEL 3, W/CON F, URINE oxycodone POSITI VE NG/mL <100 abnormal Not Available [address] [address] [place], [address], 09/28/2023 13:03:56 09/28/19 24 09/28/2023 DRUG MONIT OR, PANEL 3, W/CON F, URINE noroxycodone 2495 NG/mL <50 high Not Available [address], [address], 09/28/2023 13:03:56 09/28/19 24 09/28/2023 DRUG MONIT OR, PANEL 3, W/CON F, URINE oxycodone 2054 NG/mL <50 high Not Available [address], [address], 09/28/2023 13:03:56 09/28/19 24 09/28/2023 DRUG MONIT OR, PANEL 3, W/CON F, URINE oxymorphone 426 NG/mL <50 high Not Available [address], [address], 09/28/2023 13:03:56 09/28/19 24 09/28/2023 DRUG MONIT OR, PANEL 3, W/CON F, URINE oxycodone comments See Oxyco done Notes , LDT Notes Not Available [address] [address] [place], [address], 09/28/2023 13:03:56 09/28/19 24 09/28/2023 DRUG MONIT OR, PANEL 3, W/CON F, URINE creatinine 136.4 mg/dL > or = 20.0 Not Available [address] [place], [address], 09/28/2023 13:03:56 09/28/19 24 09/28/2023 DRUG MONIT OR, PANEL 3, W/CON F, URINE pH 6.3 4.5-9. 0 Not Available [address] [place], [address], 09/28/2023 13:03:56 09/28/19 24 09/28/2023 DRUG MONIT OR, PANEL 3, W/CON F, URINE oxidant NEGATI VE mcg/m L <200 Not Available [address] [place], [address], 09/28/2023 13:03:56 09/01/19 24 09/01/2023 IRON/ TIBC PANEL total iron binding capacity 245 mcg/d L 265-[address] [facility] (Lab) [address] [place], [address], 09/01/2023 20:11:42 09/01/19 24 09/01/2023 IRON/ TIBC PANEL % transferrin saturation 20 % 20-55 Not Available [facility] (Lab) [address] [place], [address], 09/01/2023 20:11:42 09/01/19 24 09/01/2023 IRON/ TIBC PANEL unsaturated iron bind capacity 196 mcg/d L 126-[address] [facility] (Lab) [address] [place], [address], 09/01/2023 20:11:42 09/01/19 24 09/01/2023 IRON/ TIBC PANEL iron 49 mcg/d L 42-[address] [facility] (Lab) [address] [place], [address], 09/01/2023 20:11:42 09/01/19 24 09/01/2023 CBC W/O DIFFE RENTI AL white blood cells 12.6 x10'3 /uL 4.2-10 .8 high Not Available [facility] (Lab) [address] [place], [address], 09/01/2023 19:54:16 09/01/19 24 09/01/2023 CBC W/O DIFFE RENTI AL red blood cells 4.19 x10'6 /uL 3.80-[address] [facility] (Lab) [address] [place], [address], 09/01/2023 19:54:16 09/01/19 24 09/01/2023 CBC W/O DIFFE RENTI AL hemoglobin 11.1 g/dL 12.0-1 5.[address] [facility] (Lab) [address] [place], [address], 09/01/2023 19:54:16 09/01/19 24 09/01/2023 CBC W/O DIFFE RENTI AL hematocrit 36.0 % 35.7-[address] [facility] (Lab) [address] [place], [address], 09/01/2023 19:54:16 09/01/19 24 09/01/2023 CBC W/O DIFFE RENTI AL mean red cell volume 85.9 fL 82.0-[address] [facility] (Lab) [address] [place], [address], 09/01/2023 19:54:16 09/01/19 24 09/01/2023 CBC W/O DIFFE RENTI AL mean red cell hemoglobin 26.5 pg 27.0-3 3.[address] [facility] (Lab) [address] [place], [address], 09/01/2023 19:54:16 09/01/19 24 09/01/2023 CBC W/O DIFFE RENTI AL mean RBC HGB concentratio n 30.8 g/dL 31.0-3 6.[address] [facility] (Lab) [address] [place], [address], 09/01/2023 19:54:16 09/01/19 24 09/01/2023 CBC W/O DIFFE RENTI AL red cell distribution width 17.6 % 11.8-1 5.[address] [facility] (Lab) [address] [place], [address], 09/01/2023 19:54:16 09/01/19 24 09/01/2023 CBC W/O DIFFE RENTI AL platelets 363 x10'3 /uL 150-[address] [facility] (Lab) [address] [place], [address], 09/01/2023 19:54:16 09/01/19 24 09/01/2023 CBC W/O DIFFE RENTI AL mean platelet volume 10.3 fL 9.0-[address] [facility] (Lab) [address] [place], [address], 09/01/2023 19:54:16 09/01/19 24 09/01/2023 BASIC METAB OLIC PANEL sodium 142 mmol/ L 137-[address] [facility] (Lab) [address] [place], [address], 09/01/2023 20:11:03 09/01/19 24 09/01/2023 BASIC METAB OLIC PANEL potassium 4.3 mmol/ L 3.5-5. [address] [facility] (Lab) [address] [place], [address], 09/01/2023 20:11:03 09/01/19 24 09/01/2023 BASIC METAB OLIC PANEL chloride 113 mmol/ L 98-[address] [facility] (Lab) [address] [place], [address], 09/01/2023 20:11:03 09/01/19 24 09/01/2023 BASIC METAB OLIC PANEL carbon dioxide 24 mmol/ L 22-[address] [facility] (Lab) [address] [place], [address], 09/01/2023 20:11:03 09/01/19 24 09/01/2023 BASIC METAB OLIC PANEL anion gap 9.3 mmol/ L 14-[address] [facility] (Lab) [address] [place], [address], 09/01/2023 20:11:03 09/01/19 24 09/01/2023 BASIC METAB OLIC PANEL glucose 103 mg/dL 70-[address] [facility] (Lab) [address] [place], [address], 09/01/2023 20:11:03 09/01/19 24 09/01/2023 BASIC METAB OLIC PANEL BUN 18 mg/dL 8-[address] [facility] (Lab) [address] [place], [address], 09/01/2023 20:11:03 09/01/19 24 09/01/2023 BASIC METAB OLIC PANEL creatinine 1.05 mg/dL 0.66-[address] [facility] (Lab) [address] [place], [address], 09/01/2023 20:11:03 09/01/19 24 09/01/2023 BASIC METAB OLIC PANEL GFR 52 Refer ence Range : [place] ge GFR Healt hy Adult : >60 mL/mi n/1.7 3 m2 Chron ic Kidne y Disea se: 15-60 mL/mi n/1.7 3 m2 Kidne y Failu re: <15/m L/min /1.73 m2 www.n iddk. nih.g ov The MDRD study equat ion has not been valid ated in child jocelyn <18 years of age; pregn ant women ; the elder ly >85 years of age; or in some racia l or ethni c subgr oups, such as Hispa nics. Outsi de the valid ated viridiana eters , estim ated GFR is less accur ate, requi ring clini theresa judgm ent on a case- by-ca se basis . Clini theresa inter preta tion for other races and ages must be made by the clini [place]. The MDRD study equat ion has not been valid ated for the evalu ation of serum creat inine relat ed to nutri griselda l statu s or medic ation usage . For perso ns <18 years of age, a pedia tric GFR calcu lator is avail able on the [facility] websi te: https ://eula w.luis rivas.o rg/pr ofess ional s/kdo qi/gf r_cal culat or Not Available [facility] (Lab) [address] [place], [address], 09/01/2023 20:11:03 09/01/1909/01/2023 BASIC METAB OLIC PANEL calcium 9.0 mg/dL 8.4-[address] [facility] (Lab) [address] [place], [address], 09/01/2023 20:11:03 09/01/19 24 09/01/2023 HEPAT IC/LI TRISTON PANEL alkaline phosphatase 89 U/L 38-126 Not Available [facility] (Lab) [address] [place], [address], 09/01/2023 20:11:13 09/01/1909/01/2023 HEPAT IC/LI TRISTON PANEL alanine aminotransfe rase 16 U/L 0-35 Not Available [facility] (Lab) [address] [place], [address], 09/01/2023 20:11:13 09/01/19 24 09/01/2023 HEPAT IC/LI TRISTON PANEL aspartate aminotransfe rase 18 U/L 15-37 Not Available [facility] (Lab) [address] [place], [address], 09/01/2023 20:11:13 09/01/19 24 09/01/2023 HEPAT IC/LI TRISTON PANEL bilirubin, total 0.50 mg/dL 0.20-[address] [facility] (Lab) [address] [place], [address], 09/01/2023 20:11:13 09/01/19 24 09/01/2023 HEPAT IC/LI TRISTON PANEL bilirubin, conjugated (direct) 0.00 mg/dL 0.00-[address] [facility] (Lab) [address] [place], [address], 09/01/2023 20:11:13 09/01/19 24 09/01/2023 HEPAT IC/LI TRISTON PANEL biliurubin,u ncong. (indirect) 0.20 mg/dL 0.00-[address] [facility] (Lab) [address] [place], [address], 09/01/2023 20:11:13 09/01/19 24 09/01/2023 HEPAT IC/LI TRISTON PANEL total protein 6.6 g/dL 6.3-8. [address] [facility] (Lab) [address] [place], [address], 09/01/2023 20:11:13 09/01/19 24 09/01/2023 HEPAT IC/LI TRISTON PANEL albumin 3.5 g/dL 3.0-4. [address] [facility] (Lab) [address] [place], [address], 09/01/2023 20:11:13 09/01/19 24 09/01/2023 HEPAT IC/LI TRISTON PANEL globulin 3.1 g/dL 2.6-4. [address] [facility] (Lab) [address] [place], [address], 09/01/2023 20:11:13 09/01/19 24 09/01/2023 HEPAT IC/LI TRISTON PANEL A/G ratio 1.1 ratio 1.0-2. [address] [facility] (Lab) [address] [place], [address], 09/01/2023 20:11:13 09/01/19 24 09/01/2023 VITAM IN D 25-HY DROXY [id number] 34.9 NG/mL 30-100 Vitam in D Statu s: Defic ient: <20 ng/mL Insuf ficie nt: 20-29 ng/mL Suffi cient : 30-10 0 ng/mL Not Available [facility] (Lab) [address] [place], [address], 09/01/2023 20:16:26 09/01/19 24 09/01/2023 URINA LYSIS COMPL ETE/I RIS W/RFX color YELLOW Not Available [facility] (Lab) [address] [place], [address], 09/01/2023 20:20:35 09/01/19 24 09/01/2023 URINA LYSIS COMPL ETE/I RIS W/RFX appear EXTRA TURBID abnormal Not Available [facility] (Lab) [address] [place], [address], 09/01/2023 20:20:35 09/01/19 24 09/01/2023 URINA LYSIS COMPL ETE/I RIS W/RFX specific gravity 1.017 1.001- 1.[address] [facility] (Lab) [address] [place], [address], 09/01/2023 20:20:35 09/01/19 24 09/01/2023 URINA LYSIS COMPL ETE/I RIS W/RFX pH 6.0 pH_un its 5.0-9. [address] [facility] (Lab) [address] [place], [address], 09/01/2023 20:20:35 09/01/19 24 09/01/2023 URINA LYSIS COMPL ETE/I RIS W/RFX leukocytes 250 enedina/u L negati ve- abnormal Not Available [facility] (Lab) [address] [place], [address], 09/01/2023 20:20:35 09/01/19 24 09/01/2023 URINA LYSIS COMPL ETE/I RIS W/RFX nitrite 2+ negati ve- abnormal Not Available [facility] (Lab) [address] [place], [address], 09/01/2023 20:20:35 09/01/19 24 09/01/2023 URINA LYSIS COMPL ETE/I RIS W/RFX protein NEGATI VE mg/dL negati ve- Not Available [facility] (Lab) [address] [place], [address], 09/01/2023 20:20:35 09/01/19 24 09/01/2023 URINA LYSIS COMPL ETE/I RIS W/RFX glucose NORMAL mg/dL normal - Not Available [facility] (Lab) [address] [place], [address], 09/01/2023 20:20:35 09/01/19 24 09/01/2023 URINA LYSIS COMPL ETE/I RIS W/RFX ketones NEGATI VE mg/dL negati ve- Not Available [facility] (Lab) [address] [place], [address], 09/01/2023 20:20:35 09/01/19 24 09/01/2023 URINA LYSIS COMPL ETE/I RIS W/RFX urobilinogen NORMAL mg/dL normal - Not Available [facility] (Lab) [address] [place], [address], 09/01/2023 20:20:35 09/01/19 24 09/01/2023 URINA LYSIS COMPL ETE/I RIS W/RFX bilirubin 0.5 mg/dL negati ve- abnormal Not Available [facility] (Lab) [address] [place], [address], 09/01/2023 20:20:35 09/01/19 24 09/01/2023 URINA LYSIS COMPL ETE/I RIS W/RFX blood NEGATI VE mg/dL negati ve- Not Available [facility] (Lab) [address] [place], [address], 09/01/2023 20:20:35 09/01/19 24 09/01/2023 URINA LYSIS COMPL ETE/I RIS W/RFX white blood cells 9-20 /i??h pfi?? 0-[address] [facility] (Lab) [address] [place], [address], 09/01/2023 20:20:35 09/01/19 24 09/01/2023 URINA LYSIS COMPL ETE/I RIS W/RFX red blood cells 0-4 /i??h pfi?? 0-[address] [facility] (Lab) [address] [place], [address], 09/01/2023 20:20:35 09/01/19 24 09/01/2023 URINA LYSIS COMPL ETE/I RIS W/RFX bacteria MODERA TE abnormal Not Available [facility] (Lab) [address] [place], [address], 09/01/2023 20:20:35 09/01/19 24 09/01/2023 URINA LYSIS COMPL ETE/I RIS W/RFX mucous OCCASI ONAL /i??l pfi?? abnormal Not Available [facility] (Lab) [address] [place], [address], 09/01/2023 20:20:35 09/01/19 24 09/01/2023 URINA LYSIS COMPL ETE/I RIS W/RFX squamous epithelial OCCASI ONAL /i??l pfi?? abnormal Not Available [facility] (Lab) [address] [place], [address], 09/01/2023 20:20:35 09/01/19 24 09/01/2023 SEDIM ENTAT ION RATE erythrocyte sedimentatio n rate 21 mm/HR 0-20 high Not Available [facility] (Lab) [address] [place], [address], 09/01/2023 20:23:56 09/01/19 24 09/01/2023 TSH thyroid-stim ulating hormone 1.460 uIU/m L 0.465- 4.[address] [facility] (Lab) [address] [place], [address], 09/01/2023 20:28:14 09/01/19 24 09/01/2023 LANE TIN ferritin 77 NG/mL 11.1-[address] [facility] (Lab) [address] [place], [address], 09/01/2023 20:34:09 09/01/19 24 09/01/2023 VITAM IN B12 (CRISTINA MINA ) vb12 835 pg/mL 239-[address] [facility] (Lab) [address] [place], [address], 09/01/2023 20:54:19 09/01/19 24 09/01/2023 CULTU RE URINE urc ===== ===== ===== ===== ===== ===== ===== ===== ===== ===== ===== ===== ===== ===== ===== ===== ===== ===== ===== ===== ===== ===== ===== ===== Speci men NO.: [id number] Exam Statu s: Final Proce dure: CULTU RE URINE ===== ===== ===== ===== ===== ===== ===== ===== ===== ===== ===== ===== ===== ===== ===== ===== ===== ===== ===== ===== ===== ===== ===== ===== Iso/R esult : 01 Esche alfonso a coli Antim icrob ic/Do se MATEUS Syste mateus Urine __ ___ ___ Ampic illin <=8 S S Aztre onam <=4 S S Cefot axime <=2 Cipro floxa bernard <=0.2 5 S S Ertap enem <=0.5 SSUP SRES LTS SED RESU Genta micin <=2 [place] [id number] Oxida se React ion N Extra Sensi tive Be NEG Amp/S ulbac melgar <=8/4 S S Ceftr iaxon e <=1 S S Cefta zidim e <=1 S S Cefta zidim e/K Clav <=0.2 5 SUPP RESS Cefot axime /K Clavu <=0.5 SUPP RESS Cefaz mei <=2 S S Cefep arnol <=2 S S Cefur oxime <=4 S S Levof loxac in <=0.5 S S Merop enem <=1 S S Pip/T azo <=8 S S Trime th/Alvarez lfa <=2/3 8 S S Tetra cycli ne <=4 S S Tobra mycin <=2 S S TS ED R ESUL TS ED R ESUL Cefta zidim e/Grady karen <=8 SSUP SRES LTS SED RESU Nitro furan toin <=32 S S Not Available [facility] (Lab) [address] [place], [address], 09/04/2023 07:48:25 11/17/1911/15/2023 DEXA No observ ation record ed. [email or web address] [facility] (Mammography) [address], [place], [address], 12/14/2023 09:27:48 Result Notes None recorded. Problems Name Problem SNOMED Code Status Onset Date Resolution Date Notes Provider Name and Address Organization Details Recorded Time Chronic pain syndrome 510060712 Active 2022 Not Available [facility] 3 12:57:01 Cobalami n deficien cy 661546466 Active 2022 Not Available [facility] 3 12:57:00 Arthriti s 9776279 Active 2022 Vanessa House RN [facility], [place] [facility] [place] [facility] 4 15:11:56 Candidal intertri go 385532248 Active 2022 Not Available [facility] 3 12:57:01 Vitamin D deficien cy 67119792 Active 2022 Not Available [facility] 3 12:57:01 Neck pain 18427504 Active 2022 Not Available [facility] 3 12:57:02 Tinea corporis 69725883 Active 2022 Not Available [facility] 3 12:57:02 Cat scratch - wound 213178876 Active 2022 Not Available [facility] 3 12:57:01 Urticari a 972361637 Active 2022 Not Available [facility] 3 12:57:00 Pain in throat 722273260 Active 2022 Not Available [facility] 3 12:57:00 Nausea 754249696 Active 2022 Not Available [facility] 3 12:57:01 Low back pain 604255644 Active 2022 Not Available [facility] 3 12:57:01 Plaque psoriasi s 235797106 Active 2022 Not Available [facility] [facility] 12:[facility]:00 Cellulit is of lower limb 072415852 Active 2022 Not Available [facility] 3 12:57:01 Edema of lower extremit y 971719761 Active 2022 Not Available [facility] 3 12:57:00 Vaginiti s 62297935 Active 2022 Not Available [facility] 3 12:57:01 Loss of hair 033474019 Active 2022 Not Available [facility] 3 12:57:01 Seasonal allergic rhinitis 773804253 Active 2022 Not Available [facility] 3 12:57:01 Bilatera l shoulder joint pain [id number] 483932 Active 2022 Not Available [facility] 3 12:57:00 Bronchit is 19410033 Active 2022 Not Available [facility] 3 12:57:01 Pain of left shoulder joint [id number] 592879 Active 2022 Not Available [facility] 3 12:57:00 COVID-19 109665909 Active 2023 Bita Colorado MD [address], [place], [address] , [employer] [facility] [employer] 4 11:49:30 Itching of skin 362585905 Active 2023 Bita Colorado MD [address], [place], [address] , [employer] [facility] [employer] [facility] 4 16:58:32 Inadequa te intake of vitamin D and/or vitamin D derivati ve 637160607 Active 2023 KELSEA Garcia [address] [facility], [address], [place], [address] , [facility] [employer] [facility] 4 14:31:23 Acute urinary tract infectio n 881180243 Active 2023 GONZALO Saeed [address] [facility], [facility] [address], [place], [address] , [facility] [employer] [facility] 4 10:07:44 Cellulit is 653899341 Active Not Available [facility] 3 12:57:00 Chronic obstruct guillermo pulmonar y disease 65506775 Active Not Available [facility] 3 12:57:00 Constipa tion 06772214 Active Not Available [facility] 3 12:57:00 Acute sinusiti s 61702907 Active Not Available [facility] 3 12:57:00 Increase d frequenc y of urinatio n 627134580 Active Not Available [facility] 3 12:57:00 Mean corpuscu lar hemoglob in outside referenc e range 828553715 Active Not Available [facility] 3 12:57:00 C-reacti ve protein outside referenc e range 419637820 Active Not Available [facility] 3 12:57:00 Pain in finger 41088948 Active Not Available [facility] 3 12:57:00 Obsessiv e-compul sive disorder 054305620 Active Not Available [facility] 3 12:57:00 Hand joint pain 449522672 Active Not Available [facility] 3 12:57:00 Abdomina l pain 43053802 Active Not Available [facility] 3 12:57:00 Immunode ficiency disorder 797295777 Completed Not Available [facility] 3 04:52:00 Gastroes ophageal reflux disease 893985452 Active Vanessa House RN null, [facility] [employer] [facility] 4 15:12:03 Edema 330137356 Active Not Available [facility] 3 12:57:01 Syncope 296464637 Active Not Available [facility] 3 12:57:01 Anemia 214848243 Active h/o hemolyti c anemia Vanessa House RN null, [facility] [employer] [facility] 4 15:11:37 Knee pain Active Not Available [facility] 3 12:57:01 Osteopen ia 695482474 Active 2016 Not Available [facility] 3 12:57:01 Severe chronic obstruct guillermo pulmonar y disease 824698946 Active Not Available [facility] 3 12:57:01 Restless legs 16818839 Active Not Available [facility] 3 12:57:01 Depressi ve disorder 16424906 Active Not Available [facility] 3 12:57:01 Neuropat hy 977184793 Active Not Available [facility] 3 12:57:01 Fever 068756849 Active Not Available [facility] 3 12:57:01 Osteoart hritis 583000859 Active Vanessa House RN null, [facility] [employer] [facility] 4 15:14:08 Chronic sinusiti s 13889886 Active Not Available [facility] 3 12:57:01 Onychomy cosis 852517669 Active Not Available [facility] 3 12:57:01 Hypokale santo 10095482 Active Not Available [facility] 3 12:57:01 Anxiety 54414952 Active Vanessa House RN null, [facility] [employer] [facility] 4 15:11:29 Dysuria 11214068 Active Not Available [facility] 3 12:57:01 Cough 40349489 Active Not Available [facility] 3 12:57:01 Cellulit is of umbilicu s 79348910 Active Not Available [facility] 3 12:57:01 Joint pain 73397763 Active Vanessa House RN null, [place] [facility] [employer] [facility] 4 15:14:01 Intertri go 58758894 Active Not Available [facility] 3 12:57:01 Tinea pedis 8589131 Active Not Available [facility] 3 12:57:01 Allergic rhinitis 20600849 Active Not Available [facility] 3 12:57:01 Diarrhea 24964758 Active Not Available [facility] 3 12:57:01 Osteopor osis 12736494 Active 2016 Not Available [facility] 3 12:57:01 Polymyal maren rheumati ca 01597974 Active Not Available [facility] 3 12:57:01 Increase d liver function 27125121 Active Not Available [facility] 3 12:57:01 Muscle pain 25506187 Active Not Available [facility] 3 12:57:02 Fatigue 38663706 Active Not Available [facility] 3 12:57:02 Iron deficien cy anemia 70422489 Active 2009 Pt goes in for iron infusion 's when level's drop. Last one was 2022. Every other month labs JEROME Johnson, [facility] [employer] [facility] 4 15:13:47 Weight gain 9809389 Active Not Available [facility] 3 12:57:02 Psoriasi s 2997634 Active Not Available [facility] 3 12:57:02 Notes:Some problems listed i n Documents: #[id number], #[id number] could not be added to this patient's chart. Please review these documents and add these problems to the patient's chart manually as needed. Problem Notes None recorded. Procedures Surgical History Date Name Laterality Status Provider Name and Address Organization Details Recorded Time 4 Chronic care management services completed Vanessa House RN [place] [employer] [facility] 12/14/2023 17:59:11 4 Chronic care management services completed Vanessa House RN [place] [employer] [facility] 11/14/2023 12:39:55 4 Chronic care management services completed Vanessa House RN [facility] [employer] [facility] 09/14/2023 16:19:44 2 Most Recent Bone Density completed Vanessa House RN [facility] [employer] [facility] 09/14/2023 15:42:04 Imaging Results Imaging Date Name Status LastModified by Organizatio n Details LastModified Time 11/15/2023 DEXA completed [email or web address] [facility] (Mammography) [address], [place], [address], 12/14/2023 09:27:48 Procedure Notes None recorded. Medical Equipment None Reported. Allergies Allergen ID Allergen Name Allergen Category Reaction Reaction Severity Criticality Documentation Date Start Date Code Code System Note Provider Name and Address Organization Details Recorded Time 87267 moxifloxa bernard medicatio n Not available Not available Not available 09/14/2023 36032 2 RxNorm Other react ions and sever ities : 'Adve rse react ion to subst ance' . JEROME Johnson, [facility] [employer] [facility] 4 16:04:08 66057 Non-stero idal anti-infl ammatory agent (product) medicatio n gi bleed severe high 11/14/2023 97662 005 SNOMED JEROME Johnson, [facility] [employer] [facility] 12:21:52 7892 Substance with sulfonami de structure and antibacte rial mechanism of action (substanc e) medicatio n hives moderate high 06/22/2022 89070 8003 [facility] [employer] [facility] 14:49:36 7894 morphine medicatio n Not available Not available Not available 06/22/2022 7052 RxNorm Other react ions and sever ities : 'Adve rse react ion to subst ance' . JEROME Johnson, [facility] 4 16:04:09 7895 Macrobid medicatio n hives moderate high 06/22/2022 25986 1 RxNorm Vanessa House RN null, [facility] [employer] [facility] 4 14:50:08 7897 Avelox medicatio n Not available Not available high 06/22/2022 59559 6 RxNorm abdom inal pain, hives and itchi ng Vanessa House RN null, [facility] 4 14:50:40 Medications Name Sig Start Date Stop Date Status Note LastModified by Organization Details LastModified Time Prescript ion - Renewal active Not Available Not Available Not Available Prescript ion - Prior Authoriza tion Request 04/13 completed Not Available Not Available Not Available Santyl 250 unit/gram topical ointment apply thin layer to aa qday x 7 days 04/14 completed Not Available Not Available Not Available cyclobenz aprine 10 mg tablet TAKE ONE TABLET BY MOUTH THREE TIMES DAILY NEEDED 02/24 completed Not Available Not Available Not Available amoxicill in 500 mg capsule 05/23 completed Not Available Not Available Not Available furosemid e 40 mg tablet Take 1 tablet every day by oral route. active Not Available Not Available No t Available methocarb arianne 500 mg tablet 1-2 tabs po TID prn active Not Available Not Available No t Available promethaz ine-DM 6.25 mg-15 mg/5 mL oral syrup Take 5 mL every 4 hours by oral route as needed for 10 days, for cough. 2023 active Not Available Not Available Not Avai lable prednison e 10 mg tablet Take 2 tablets every day by oral route. active Not Available Not Available No t Available doxycycli ne hyclate 100 mg capsule TAKE 1 CAPSULE BY MOUTH TWICE DAILY active Not Available Not Available No t Available clindamyc in HCl 300 mg capsule Take 1 capsule every 6 hours by oral route for 7 days. 10/06 completed Not Available Not Available Not Available albuterol sulfate 2.5 mg/3 mL (0.083 %) solution for nebulizat ion USE 1 VIAL IN NEBULIZE R 4 TIMES DAILY active Not Available Not Available No t Available azithromy bernard 250 mg tablet 2 tabs po qd x 1 day then 1 tab po qd x 4 days 02/28 completed Not Available Not Available Not Available fosfomyci n trometham ine 3 gram oral packet TAKE 3GM BY MOUTH ONCE FOR ONE DOSE active Not Available Not Available No t Available Lidocaine Viscous 2 % mucosal solution Take 10 mL every 3-4 hours by oral route as needed. active Not Available Not Available No t Available ofloxacin 0.3 % eye drops INSTILL 1 DROP INTO OPERATIV E EYE THREE TIMES DAILY STARTING 2 DAYS PRIOR TO SURGERY, CONTINUI NG FOR 1 WEEK AFTER SURGERY. 04/13 completed Not Available Not Available Not Available tizanidin e 4 mg tablet TAKE 1 TO 2 TABLETS BY MOUTH EVERY 8 HOURS NEEDED FOR MUSCLE SPASM active Not Available Not Available No t Available fluconazo le 150 mg tablet TAKE 1 TABLET BY MOUTH NOW, MAY REPEAT IN 72 HOURS IF NEEDED active Not Available Not Available No t Available benzonata te 200 mg capsule Take 1 capsule 3 times a day by oral route as needed. 04/27 completed Not Available Not Available Not Available albuterol sulfate 1.25 mg/3 mL solution for nebulizat ion active Not Available Not Available Not Available ondansetr on HCl 8 mg tablet Take 1 tablet every 8 hours by oral route as needed. active Not Available Not Available No t Available meloxicam 15 mg tablet 1/2 tab po bid prn pain 02/28 completed Not Available Not Available Not Available prednison e 20 mg tablet TAKE 1 TABLET BY MOUTH ONCE DAILY FOR 5 DAYS active Not Available Not Available No t Available alendrona te 70 mg tablet Take 1 tablet every week by oral route. active Not Available Not Available No t Available Rocephin 1 gram solution for injection 1 gram IM x 1 01/24 completed Not Available Not Available Not Available hydroxyzi ne HCl 50 mg tablet Take 1 tablet 4 times a day by oral route as needed. 09/08 completed Not Available Not Available Not Available ciproflox acin 250 mg tablet TAKE 1 TABLET BY MOUTH TWICE DAILY FOR 5 DAYS active Not Available Not Available No t Available dextromet horphan-g uaifenesi n 10 mg-100 mg/5 mL oral syrup Take 10 mL every 6 hours by oral route as needed. 03/28 completed Not Available Not Available Not Available ciproflox acin 500 mg tablet Take 1 tablet twice a day by oral route for 7 days. active Not Available Not Available No t Available Tamiflu 75 mg capsule Take 1 capsule twice a day by oral route for 5 days. 04/27 completed Not Available Not Available Not Available folic acid 400 mcg tablet Take 1 tablet every day by oral route. active Not Available Not Available No t Available hydrocodo ne 10 mg-acetam inophen 325 mg tablet TAKE 1 TABLET BY MOUTH THREE TIMES A DAY NEEDED 06/28 completed Not Available Not Available Not Available omeprazol e 40 mg capsule,d elayed release Take 1 capsule every day by oral route. 03/13 completed Not Available Not Available Not Available tramadol 50 mg tablet 1 po q4 hours prn pain 05/25 completed Not Available Not Available Not Available triamcino lone acetonide 0.1 % topical cream 09/13 completed Not Available Not Available Not Available ketorolac 30 mg/mL (1 mL) injection solution 2 ml IM x 1 2023 active pt velma well. Takes monthly Not Available Not Available Not Available ondansetr on 8 mg disintegr ating tablet Place 1 tablet 3 times a day by translin gual route as needed. active PRN Not Available Not Available No t Available baclofen 20 mg tablet TAKE ONE TABLET BY MOUTH THREE TIMES DAILY 12/25 completed Not Available Not Available Not Available ketorolac 0.5 % eye drops INSTILL 1 DROP INTO OPERATIV E EYE 4 TIMES DAILY STARTING 2 DAYS PRIOR TO SURGERY, CONTINUI NG FOR 2 WEEKS AFTER SURGERY. 04/13 completed Not Available Not Available Not Available Macrobid 100 mg capsule Take 1 capsule every 12 hours by oral route for 7 days. 09/18 completed Not Available Not Available Not Available Celebrex 200 mg capsule Take 1 capsule every day by oral route. 05/28 completed Sample Qty: 3. Not Available Not Available Not Available Bactroban 2 % topical cream APPLY A SMALL AMOUNT TO THE AFFECTED AREA BY TOPICAL ROUTE 3 TIMES PER DAY FOR 10 DAYS 02/11 completed Not Available Not Available Not Available Zofran 4 mg tablet Take 1 tablet 3 times a day by oral route as needed. 03/10 completed Not Available Not Available Not Available terbinafi ne HCl 250 mg tablet 1 po qday x 2 weeks 08/11 completed Not Available Not Available Not Available alprazola m 0.5 mg tablet TAKE 1 TABLET BY MOUTH TWICE DAILY NEEDED active Not Available Not Available No t Available amoxicill in 875 mg tablet TAKE 1 TABLET BY MOUTH EVERY 12 HOURS FOR 7 DAYS 04/13 completed Not Available Not Available Not Available alprazola m 0.25 mg tablet TAKE ONE TABLET BY MOUTH TWICE DAILY NEEDED 02/11 completed Not Available Not Available Not Available famotidin e 20 mg tablet Take 1 tablet twice a day by oral route. 09/13 completed Not Available Not Available Not Available prednisol one acetate 1 % eye drops,you pension INSTILL 1 DROP INTO SURGICAL EYE 3 TIMES DAILY STARTING AFTER SURGERY AND CONTINUI NG FOR 3 WEEKKS 04/13 completed Not Available Not Available Not Available magnesium oxide 400 mg (241.3 mg magnesium ) tablet TAKE ONE TABLET BY MOUTH EVERY DAY 01/02 completed Not Available Not Available Not Available lorazepam 0.5 mg tablet Take 1 tablet every day by oral route as needed. 06/08 completed Not Available Not Available Not Available methocarb arianne 750 mg tablet Take 1 tablet 3 times a day by oral route. 09/30 completed Not Available Not Available Not Available oxycodone -acetamin ophen 10 mg-325 mg tablet TAKE 1 TABLET BY MOUTH EVERY 8 HOURS active Not Available Not Available No t Available dicyclomi ne 20 mg tablet TAKE 1 TABLET BY MOUTH EVERY 6 HOURS NEEDED FOR ABDOMINA L PAIN active Not Available Not Available No t Available baclofen 10 mg tablet TAKE ONE TO TWO TABLETS BY MOUTH THREE TIMES DAILY NEEDED FOR SPASM active Not Available Not Available No t Available triamcino lone acetonide 40 mg/mL suspensio n for injection 1 ml IM x 1 2023 active Pt states this works well Not Available Not Available Not Available cephalexi n 500 mg capsule TAKE 1 CAPSULE BY MOUTH EVERY 6 HOURS FOR 5 DAYS active Not Available Not Available No t Available cyanocoba mina (vit B-12) 1,000 mcg/mL injection solution INJECT 1000MCG INTRAMUS CULARLY ONCE A MONTH active Not Available Not Available No t Available ferrous sulfate 325 mg (65 mg iron) tablet Take 1 tablet every day by oral route. 09/13 completed Not Available Not Available Not Available esomepraz ole magnesium 40 mg capsule,d elayed release Take 1 capsule by mouth once daily active Not Available Not Available No t Available nitrofura ntoin macrocrys paras 100 mg capsule Take 1 capsule twice a day by oral route for 7 days. 08/09 completed Not Available Not Available Not Available triamcino lone acetonide 0.1 % topical ointment APPLY TO THE AFFECTED AREA(S) TWICE DAILY NEEDED active Pt states this does not work. She has to get injectio ns Not Available Not Available Not Available nystatin 100,000 unit/gram topical cream APPLY TO THE AFFECTED AREA(S) BY TOPICAL ROUTE 2 TIMES PER DAY x 2 weeks prn rash active Not Available Not Available No t Available lansopraz ole 30 mg capsule,d elayed release Take 1 capsule every day by oral route. 08/16 completed Not Available Not Available Not Available promethaz ine 25 mg tablet TAKE 1 TABLET BY MOUTH EVERY 4 HOURS NEEDED 04/27 completed Not Available Not Available Not Available Advair Diskus 250 mcg-50 mcg/dose powder for inhalatio n INHALE ONE DOSE BY MOUTH TWICE DAILY 06/08 completed Not Available Not Available Not Available sertralin e 25 mg tablet Take 1 tablet every day by oral route. 10/17 completed Not Available Not Available Not Available diclofena c sodium 75 mg tablet,de layed release TAKE ONE TABLET BY MOUTH TWICE DAILY 06/02 completed Not Available Not Available Not Available cephalexi n 500 mg tablet Take 1 tablet twice a day by oral route for 7 days. 02/28 completed Not Available Not Available Not Available folic acid 1 mg tablet TAKE 1 TABLET BY MOUTH ONCE DAILY 09/13 completed Not Available Not Available Not Available mont[address] [facility] 10 mg tablet TAKE 1 TABLET BY MOUTH ONCE DAILY 2023 active Not Available Not Available Not Avai lable hydroxyzi ne HCl 25 mg tablet TAKE 1 TABLET BY MOUTH THREE TIMES DAILY active this med is PRN Not Available Not Available Not Available zolpidem 5 mg tablet Take 1 tablet every day by oral route as needed. 02/24 completed Not Available Not Available Not Available furosemid e 20 mg tablet TAKE 1 TO 2 TABLETS BY MOUTH IN THE MORNING NEEDED FOR EDEMA active this med is PRN Not Available Not Available Not Available permethri n 1 % topical liquid APPLY A SUFFICIE NT AMOUNT OF SHAMPOO BY TOPICAL ROUTE ONCE ALLOW TO REMAIN ON HAIR FOR 10 MINUTES BEFORE RINSING OFF WITH WATER x 1 05/29 completed Not Available Not Available Not Available ergocalci ferol (vitamin D2) 1,250 mcg (50,000 unit) capsule Take 1 capsule twice a week by oral route. active 3x per week Not Available Not Available Not Available clobetaso l 0.05 % topical ointment APPLY A THIN LAYER TO THE AFFECTED AREA(S) BY TOPICAL ROUTE 2 TIMES PER DAY as needed 10/03 completed Not Available Not Available Not Available nystatin 100,000 unit/gram topical powder APPLY TO THE AFFECTED AREA(S) TWICE DAILY NEEDED FOR RASH 07/26 completed Not Available Not Available Not Available lorazepam 1 mg tablet TAKE ONE TABLET BY MOUTH THREE TIMES DAILY 01/02 completed Not Available Not Available Not Available levofloxa bernard 500 mg tablet Take 1 tablet every 24 hours by oral route for 7 days. 04/14 completed Not Available Not Available Not Available levofloxa bernard 750 mg tablet Take 1 tablet every day by oral route for 5 days. 03/23 completed Not Available Not Available Not Available zolpidem 10 mg tablet 1 po qhs prn insomnia 09/13 completed Not Available Not Available Not Available albuterol sulfate HFA 90 mcg/actua tion aerosol inhaler INHALE 1 PUFF BY MOUTH EVERY 4 HOURS NEEDED FOR SHORTNES S OF BREATH OR FOR WHEEZING active Not Available Not Available No t Available Lomotil 2.5 mg-0.025 mg tablet Take1-2 tablets 4 times a day po prn diarrhea active Not Available Not Available No t Available SSD 1 % topical cream Pt is allergic to this med 09/13 completed Not Available Not Available Not Available ketoconaz ole 2 % topical cream Apply 1 applicat ion twice a day by topical route for 60 days. completed Not Available Not Available Not Available etodolac 500 mg tablet TAKE 1 TABLET BY MOUTH TWICE DAILY NEEDED FOR PAIN active Not Available Not Available No t Available fluticaso ne propionat e 50 mcg/actua tion nasal spray,you pension USE 2 SPRAY(S) IN EACH NOSTRIL ONCE DAILY active Not Available Not Available No t Available metformin ER 500 mg tablet,ex tended release 24 hr Take 1 tablet every day by oral route. 06/08 completed Not Available Not Available Not Available clotrimaz ole 1 % topical cream APPLY TO THE AFFECTED AND SURROUND ING AREAS OF SKIN BY TOPICAL ROUTE 2 TIMES PER DAY IN THE MORNING AND EVENING for 14 days prn rash 01/02 completed Not Available Not Available Not Available doxycycli ne hyclate 100 mg tablet TAKE 1 TABLET BY MOUTH TWICE DAILY FOR 10 DAYS 04/13 completed Not Available Not Available Not Available dicyclomi ne 10 mg capsule TAKE 1 CAPSULE BY MOUTH THREE TIMES DAILY active Not Available Not Available No t Available amoxicill in 875 mg-potass ium clavulana te 125 mg tablet TAKE 1 TABLET BY MOUTH TWICE DAILY FOR 10 DAYS active Not Available Not Available No t Available azithromy bernard 500 mg tablet Take 1 tablet every day by oral route for 5 days. 02/28 completed Not Available Not Available Not Available escitalop aicha 10 mg tablet Take 1 tablet by mouth once daily active Not Available Not Available No t Available escitalop aicha 5 mg tablet TAKE 1 TABLET BY MOUTH ONCE DAILY 01/02 completed Not Available Not Available Not Available Mucinex DM 30 mg-600 mg tablet,ex tended release 12 hr Take 1 tablet every 12 hours by oral route for 10 days. 06/29 completed Not Available Not Available Not Available ketorolac 30 mg/mL injection syringe 1 ml IM x 1 06/27 [id number] Not Available Not Available Not Available Lyrica 50 mg capsule Take 1 capsule 3 times a day by oral route. 03/09 completed Not Available Not Available Not Available Aleve 06/07 completed Not Available Not Available Not Available Co Q-10 02/17 completed Not Available Not Available Not Available Vicodin 10/325 1 q 6 hous 2013 active Not Available Not Available Not Avai lable ibuprofen 2013 active Not Available Not Available Not Avai lable [place] 3 09/30 completed Not Available Not Available Not Available Advair HFA 115 mcg-21 mcg/actua tion aerosol inhaler Inhale 2 puffs twice a day by inhalati on route as directed . 2013 active Not Available Not Available Not Avai lable Symbicort 160 mcg-4.5 mcg/actua tion HFA aerosol inhaler INHALE ONE PUFF BY MOUTH TWICE DAILY 02/17 completed Not Available Not Available Not Available Symbicort 80 mcg-4.5 mcg/actua tion HFA aerosol inhaler INHALE 1 PUFF BY MOUTH TWICE DAILY active Not Available Not Available No t Available Calcium 600 + D(3) 600 mg-10 mcg (400 unit) tablet Take 1 tablet every day by oral route for 90 days. 2023 active Not Available Not Available Not Avai lable ferrous sulfate 324 mg (65 mg iron) tablet,de layed release 1 po qhs with food 05/18 completed Not Available Not Available Not Available Align (B.infant is) 4 mg capsule Take 1 capsule twice a day by oral route. completed Not Available Not Available Not Available ketorolac 30 mg/mL injection solution 1 ml IM x 1 03/13 completed [facility] [id number] Not Available Not Available Not Available Myrbetriq 50 mg tablet,ex tended release TAKE 1 TABLET BY MOUTH ONCE DAILY active Not Available Not Available No t Available High-Prot ein Nutrition al Shake oral liquid 3 shakes per day dx R63.4, D3A.8 09/13 completed Not Available Not Available Not Available potassium chloride ER 20 mEq tablet,ex tended release Take 1 tablet every day by oral route. active only takes when she takes lasix Not Available Not Available Not Available Otezla Starter 10 mg (4)-20 mg (4)-30 mg(19) tablets in a dose pack take as directed 04/13 completed Not Available Not Available Not Available Otezla 30 mg tablet 07/26 completed Not Available Not Available Not Available Spiriva Respimat 2.5 mcg/actua tion solution for inhalatio n Inhale 2 puffs every day by inhalati on route. 02/26 completed Not Available Not Available Not Available Otezla Starter 10 mg (4)-20 mg (4)-30 mg(47) tablets in a dose pack take as directed 02/28 completed Not Available Not Available Not Available Stiolto Respimat 2.5 mcg-2.5 mcg/actua tion solution for inhalatio n INHALE 2 PUFFS BY MOUTH EVERY 24 HOURS active Not Available Not Available No t Available Paxlovid 300 mg (150 mg x 2)-100 mg tablets in a dose pack 1 dose po bid x 5 days GFR >60 active Pt reports severe nausea with this drug Not Available Not Available Not Available Vitals Date Recorded Body height Body mass index (BMI) Body weight Provider Name and Address Organization Details Last Updated DateTime 09/13/2023 180.34 cm 30.7 kg/m2 38851.32 g Vanessa House RN [facility] [place] [facility] 09/14/2023 14:47:33 Date Recorded Body height Body mass index (BMI) Body weight Body temperature Heart rate Oxygen saturation Oxygen saturation in Arterial blood by Pulse oximetry Systolic blood pressure Diastolic blood pressure Provider Name and Address Organization Details Last Updated DateTime 180.34 cm 31.5 kg/m2 093854. 88 g 97.5 [degF] 70 /min 97 % 97 % 116 mm[Hg] 78 mm[Hg] Iman Crook RN [facility] [place] [facility] 14:10:36 Date Recorded Body height Provider Name an d Address Organization Details Last Updated DateTime 11/14/2023 180.34 cm Vanessa House RN [facility] [place] [facility] 11/14/2023 12:19:31 Date Recorded Body height Provider Name an d Address Organization Details Last Updated DateTime 12/14/2023 180.34 cm Vanessa House RN [facility] [place] [facility] 12/14/2023 17:50:44 Social History Question Answer Notes LastModified by Organization Details LastModified Time Tobacco Smoking Status Current Every Day Smoker Not Available [facility] 06/22/2022 04:41:39 Do You Have An Advance Directive? No Pt States She Has It In Her Head And Her Children Know What You Want. Information not available 09/14/2023 What Is Your Level Of Alcohol Consumption? None MIGRATION.0308 [id number] Information not available 06/22/2022 Are You Blind Or Do You Have Difficulty Seeing? Yes Cataract Surgery Last Year, Now She Sees Well Far Away But Needs Readers For Close Up Information not available 09/14/2023 Is Blood Transfusion Acceptable In An Emergency? Yes Pt Has A Rare Blood Disease So It Has To Be Very Specific. Information not available 09/14/2023 What Is Your Level Of Caffeine Consumption? None Information not available 09/14/2023 What Is Your Code Status? Full Code Information not available 09/14/2023 In The 14 Days Before Symptom Onset, Have You Had Close Contact With A Laboratory-confi rmed COVID-19 While That Case Was Ill? No Information not available 09/14/2023 In The 14 Days Before Symptom Onset, Have You Had Close Contact With A Person Who Is Under Investigation For COVID-19 While That Person Was Ill? No Information not available 09/14/2023 Are You Currently Employed? No Information not available 09/14/2023 Are You Deaf Or Do You Have Serious Difficulty Hearing? No Information not available 09/14/2023 What Type Of Diet Are You Following? REGULAR [id number] [id number] Information not available 06/22/2022 Which Illicit Or Recreational Drugs Have You Used? No MIGRATION.0301 [id number] Information not available 06/22/2022 Do You Or Have You Ever Used E-cigarettes Or Vape? Never Used Electronic Cigarettes MIGRATION.0301 [id number] Information not available 06/22/2022 What Is The Highest Grade Or Level Of School You Have Completed Or The Highest Degree You Have Received? 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 Yes Pt Had No Power For A Month Due To Not Paying Bill (no Money). Recently Got Help From Public Assistance To Get It Back On. Was Also Having Issues W/ Meals Because She Was Putting All Her Money Into Power Bill. Information not available 09/14/2023 What Is The Fluoride Status Of Your Home? Fluoridated Tap Water. Pt Buys Bottled Water As Tap Tastes/smells Horrible Information not available 09/14/2023 Are There Any Guns Present In Your Home? No Absolutely NOT Information not available 09/14/2023 Do You Use Insect Repellent Routinely? No She Rarely Goes Outside At Night Information not available 09/14/2023 Where Do You Live? [place] Information not available 09/14/2023 Do You Have A Medical Power Of Bilingual Trainer? No Information not available 09/14/2023 What Was The Date Of Your Most Recent Tobacco Screening? 09/14/2023 Information not available 09/14/2023 How Many Children Do You Have? 2 Information not available 09/14/2023 What Is Your Current Pack Years? 10packyears Buy's Bag Of Tobacco, Filter Paper And Rolls Her Own Cigs 5-6 Paks/day Information not available 09/14/2023 Do You Have Any Pets? Yes 3 Cats Who Are All Inside The House. Information not available 09/14/2023 What Is Your Relationship Status? Single Information not available 09/14/2023 Do You Use Your Seat Belt Or Car Seat Routinely? Yes [email or web address] Information not available 08/25/2022 Are You Sexually Active? No Information not available 09/14/2023 Do You Have Smoke And Carbon Monoxide Detectors In Your Home? Yes Information not available 09/14/2023 At What Age Did You Start Smoking Tobacco? 19 MIGRATION.0301 [id number] Information not available 06/22/2022 Are You Passively Exposed To Smoke? Yes Pt Smokes Information not available 09/14/2023 Do You Or Have You Ever Used Smokeless Tobacco? Never Used Smokeless Tobacco MIGRATION.0301 [id number] Information not available 06/22/2022 Are There Any Smokers In Your House? Yes Information not available 09/14/2023 How Much Tobacco Do You Smoke? 0.5 PPD MIGRATION.0301 [id number] Information not available 06/22/2022 Do You Participate In Social Media? Yes Facebook, [employer], Electronic Games Information not available 09/14/2023 Do You Feel Stressed (tense, Restless, Nervous, Or Anxious, Or Unable To Sleep At Night)? [id number] Sometimes Very Much Depending On Life Stressors Information not available 09/14/2023 Do You Use Any Illicit Or Recreational Drugs? Yes Information not available 09/14/2023 Do You Use Sunscreen Routinely? No Information not available 09/14/2023 Has Tobacco Cessation Counseling Been Provided? Yes Pt Has Thought About Stopping But Her Anxiety Increases When She Tries Information not available 09/14/2023 On What Date Was Tobacco Cessation Counseling Provided? 09/14/2023 Information not available 09/14/2023 How Many Years Have You Smoked Tobacco? 55 MIGRATION.0301 [id number] Information not available 06/22/2022 Have You Recently Traveled Abroad? No Information not available 09/14/2023 Have You Used IV Drugs? No Information not available 09/14/2023 Are You Currently In School? No Information not available 09/14/2023 Do You Have Any Dietary Restrictions? No MIGRATION.0301 [id number] Information not available 06/22/2022 Do You Or Have You Ever Used Any Other Forms Of Tobacco Or Nicotine? Yes Pt Rolls Her Own Cigs Information not available 09/14/2023 Sex: Female Functional Status Question Answer Note LastModified by Organizat ion Details LastModified Time Do you have difficulty walking or climbing stairs? Yes Information not available 09/14/2023 Do you have transportation difficulties? No Information not available 09/14/2023 Are you able to walk? YESLIMIT Information not available 09/14/2023 Do you have difficulty doing errands alone? Yes she needs assistance and does not go anywhere by herself Information not available 09/14/2023 Are you able to care for yourself? Yes for the most part except for heavy lifting Information not available 09/14/2023 Do you have difficulty dressing or bathing? No Information not available 09/14/2023 What is your exercise level? None MIGRATION.02769 [id number] Information not available 06/22/2022 Mental Status Question Answer Note LastModified by Organizat ion Details LastModified Time Do you have difficulty concentrating, remembering or making decisions? Yes normal for age Information not available 09/14/2023 Family History Relationship Description Onset Age of this Age Resolved Age Notes LastModified by Organization Details LastModified Time Mother Diabetes mellitus [id number] Not available 06/22/2022 04:42:37 Mother Leukemia 59 deceas ed 1988 Not available 09/14/2023 15:15:12 Father Malignant tumor of lung 65 deceas ed 1995 Not available 09/14/2023 15:15:50 Sister Multiple sclerosis 66 Pt is curren tly in remiss ion Not available 09/14/2023 15:16:29 Brother Disorder of macula of retina 64 Not available 2023 15:16:53 Medical History Condition Response BLINDNESS N KIDNEY STONES N BLADDER PROBLEMS Y MRSA N LUNG DISEASE/DISORDER N HISTORY OF DRUG ABUSE N COPD Y BLOOD DISEASES Y SURGERY N EAR OR HEARING PROBLEMS Y MUMPS Y BOWEL PROBLEMS N FEMALE PROBLEMS / INFECTIONS N DEPRESSION (INCLUDING POST ) Y FAILED BACK SYNDROME N STROKE/TIA N THYROID DISEASE N ULCERS N BENIGN PROSTATIC HYPERPLASIA N MEASLES Y CERVICALGIA Y TB SKIN TEST N HYPOTENSION N MYOCARDIAL INFARCTION N OBESITY N GERD/NAUSEA Y ANEURYSM N URINARY/BLADDER/KIDNEY PROBLEMS N CORONARY ARTERY DISEASE (CAD) N Do you have Advance directive? N MENIERE'S DISEASE N ENDOMETRIOSIS N USE OF BLOOD THINNERS N SKIN PROBLEMS Y EMPHYSEMA N GASTROINTESTINAL DISORDER N MUSCLE,JOINT OR BONE PROBLEMS Y GASTROINTESTINAL BLEEDING N BLOOD CLOTS N ASTHMA Y Abdominal Pain Y CATARACTS N ARTERIAL INSUFFICIENCY N ERECTILE DYSFUNCTION N GI PROBLEMS Y CHF N Low Testosterone N NEUROPATHY N INFERTILITY N AIDS/HIV N FRACTURES N CHEMOTHERAPY / RADIATION N VISION/EYE PROBLEMS N LIVER DISEASE N HYPERTENSION N TOURETTE'S N ANXIETY DISORDER Y BLOOD TRANSFUSION Y ANEMIA/BLOOD DISORDER Y CHRONIC EAR INFECTIONS N BRONCHITIS Y TUBERCULOSIS N GLAUCOMA N FOOT PROBLEM N DIVERTICULITIS N CHICKENPOX Y SLEEP APNEA N BACK INJECTIONS N ALLERGIES/HAYFEVER Y INFECTIOUS DISEASE N HEART ARRHYTHMIA N ESRD N INSOMNIA Y HIGH CHOLESTEROL / HYPERLIPIDEMIA N HYPERTHYROIDISM N EYE PROBLEMS N EATING DISORDER N EDEMA N CHRONIC PAIN SYNDROME Y CONSTIPATION N CAROTID BLOCKAGE N BACK / NECK PROBLEMS Y HAVE YOU BEEN HOSPITALIZED OR SEEN IN [facility] IN THE PAST YEAR ? Y ATHEROSCLEROSIS N BREAST PROBLEMS N DIALYSIS N ECZEMA N FIBROMYALGIA N OSTEOPOROSIS Y ARTHRITIS Y NO SIGNIFICANT PAST MEDICAL HISTORY N APPENDICITIS N DIABETES, TYPE N BAD TEETH N VON WILLIBRAND'S DISEASE N HEARTBURN / REFLUX Y AUTISM SPECTRUM DISORDER (ASD) N HEPATITIS / LIVER DISEASE N GOUT N SLEEP DISORDER Y ALZHEIMER'S DISEASE N PAIN Y HERPES N DEMENTIA N VASCULAR DISEASE N DIZZINESS N HEART DISEASE/HEART PROBLEMS N KIDNEY DISEASE N DEVELOPMENTAL OR BEHAVIORAL DISORDERS N MULTIPLE SCLEROSIS N MENTAL DISORDER/ILLNESS N NEUROPSYCHOLOGICAL N CARDIAC ARRHYTHMIA N CANCER: SPECIFY N ATRIAL FIBRILLATION N Gall Stones N AUTOIMMUNE DISEASE Y Gynecological History Statement/Question Response Dislike of Light during Menstrual Headac he N Most Recent Mammogram Current Control Method Menopause Breast Problems no How many live births 2 If Post Menopausal, Age at Menopause 50 Date of Last Colonoscopy Most Recent Bone Density 08/24/2021 Sexually Active? N Menses Monthly N Discharge no Obstetrics History GPAL:G 3 P 0 0 1 2 Type Value Spontaneous 1 Living 2 Total 3 Immunizations Vaccine Type Date Status Note Provider Nam e and Address Organization Details Recorded Time COVID-19, mRNA, LNP-S, PF, 100 mcg/0.5mL dose or 50 mcg/0.25mL dose 1 completed JEROME Johnson, [facility] 11/14/2023 12:19:52 COVID-19, mRNA, LNP-S, PF, 100 mcg/0.5mL dose or 50 mcg/0.25mL dose 1 completed JEROME Johnson, [facility] 11/14/2023 12:19:52 Tdap 2 completed JEROME Johnson, [facility] 11/14/2023 12:19:52 Influenza, high-dose, quadrivalent, PF 3 completed Fran Neri RN null, [facility] 01/17/2023 17:34:27 SARS-COV-2 (COVID-19) vaccine, UNSPECIFIED 1 completed JEROME Johnson, [facility] 11/14/2023 12:19:52 SARS-COV-2 (COVID-19) vaccine, UNSPECIFIED 1 completed JEROME Johnson, [facility] 11/14/2023 12:19:52 pneumococcal polysaccharide PPV23 3 completed Not Available [facility] 05/04/2023 06:29:28 Influenza, high-dose, quadrivalent, PF 2 completed Not Available [facility] 05/04/2023 06:29:28 Influenza, split virus, quadrivalent, PF 1 completed Not Available [facility] 05/04/2023 06:29:28 Influenza, split virus, quadrivalent, PF 9 completed Not Available [facility] 05/04/2023 06:29:28 Influenza, split virus, quadrivalent, PF 8 completed Not Available [facility] 05/04/2023 06:29:28 Pneumococcal conjugate PCV 13 7 completed Not Available [facility] 05/04/2023 06:29:28 Tdap 6 completed Not Available [facility] 05/04/2023 06:29:28 pneumococcal polysaccharide PPV23 5 completed Not Available [facility] 05/04/2023 06:29:28 Influenza, split virus, quadrivalent, PF 4 completed Not Available [facility] 05/04/2023 06:29:28 Influenza, split virus, quadrivalent, PF 0 completed Not Available [facility] 05/04/2023 06:29:28 Influenza, split virus, quadrivalent, PF 7 completed Not Available [facility] 05/04/2023 06:29:28 Influenza, split virus, quadrivalent, preservative 6 completed Not Available [facility] 05/04/2023 06:29:27 Influenza, split virus, quadrivalent, PF 5 completed Not Available [facility] 05/04/2023 06:29:28 Past Encounters Encounter ID Performer Location Encounter Start Date Encounter Closed Date Diagnosis/Indication Diagnosis SNOMED-CT Code Diagnosis ICD10 Code Diagnosis Note [id number] [facility] [place] [address] [facility] [address] [place] [address] 08/10/2020 00:00:00 08/21/2020 08:34:16 [id number] [facility] [place] [address] [facility] [address] [place] [address] 11/10/2020 00:00:00 11/13/2020 09:26:41 [id number] [facility] [place] [address] [place] [address] 02/10/2021 00:00:00 02/10/2021 15:52:46 [id number] [facility] [place] [address] [place] [address] 02/26/2021 00:00:00 02/26/2021 09:36:42 [id number] [facility] [place] [address] [place] [address] 03/10/2021 00:00:00 03/15/2021 08:52:10 [id number] [facility] [place] [address] [place] [address] 04/19/2021 00:00:00 04/19/2021 12:38:18 [id number] [facility] [place] [address] [place] [address] 06/08/2021 00:00:00 06/21/2021 17:52:33 [id number] [facility] [place] [address] [place] [address] 07/06/2021 00:00:00 07/21/2021 07:59:47 [id number] [facility] [place] [address] [place] [address] 08/23/2021 00:00:00 08/23/2021 11:44:47 [id number] [facility] [place] [address] [place] [address] 10/06/2021 00:00:00 10/21/2021 09:55:02 [id number] [facility] [place] [address] [place] [address] 11/23/2021 00:00:00 12/20/2021 18:39:47 [id number] [facility] [place] [address] [place] [address] 12/13/2021 00:00:00 12/13/2021 16:00:38 [id number] [facility] [place] [address] [place] [address] 01/11/2022 00:00:00 01/11/2022 15:51:26 [id number] [facility] [place] [address] [place] [address] 01/24/2022 00:00:00 01/25/2022 11:40:20 [id number] [facility] [place] [address] [place] [address] 02/28/2022 00:00:00 03/22/2022 22:02:09 [id number] [facility] [place] [address] [place] [address] 03/28/2022 00:00:00 04/21/2022 08:10:32 [id number] [facility] [place] [address] [place] [address] 04/13/2022 00:00:00 04/14/2022 08:12:40 [id number] [facility] [place] [address] [place] [address] 04/27/2022 00:00:00 04/28/2022 11:31:49 [id number] [facility] [place] [address] [place] [address] 05/18/2022 00:00:00 05/23/2022 18:54:40 [id number] Bita Colorado MD [facility] [place] [address] [place] [address] 06/29/2022 14:32:54 06/29/2022 15:33:45 Cobalamin deficiency 344390940 E53.8 Arthritis 7806878 M19.90 Candidal intertrigo 2661 87116 B37.2 Iron defic iency anemia 46800484 D50.9 Vitamin D deficiency 347 06248 E55.9 Polymyalgi a rheumatica 46335138 M35.3 Neck pain 68012542 M54.2 [id number] Bita Colorado MD [facility] [place] [address] [facility] [address] [place] [address] 08/04/2022 16:35:54 08/04/2022 17:34:23 Medication monitoring 629465616 Z51.81 Tinea corporis 67670698 B35.4 Cat scratch - wound 2831 99143 T14.8XXA Cobalamin deficiency 190 623298 E53.8 [id number] Bita Colorado MD [facility] [place] [address] [facility] [address] [place] [address] 08/11/2022 16:55:34 08/11/2022 17:29:04 Cat scratch - wound 968903841 T14.8XXA 10 days of doxycyclin e after finishing clindamyci ndaily irrigation with warm water Chronic pain syndrome 37 7504442 G89.4 [id number] Bita Colorado MD [facility] [place] [address] [facility] [address] [place] [address] 08/25/2022 16:28:56 08/25/2022 17:24:10 Cat scratch - wound 976677483 T14.8XXA daily irrigation with warm water Pain in throat 088949523 R07.0 Abdominal pain 71128636 R10.9 Psoriasis 5771223 L40.9 if labs normal, will do otezla Iron defic iency anemia 84650567 D50.9 Chronic pain syndrome 37 7115845 G89.4 [id number] Bita Colorado MD [facility] [place] [address] [facility] [address] [place] [address] 09/08/2022 13:56:11 09/08/2022 14:47:17 Cat scratch - wound 819131555 T14.8XXA significan t improvemen tcontinue supportive caref/u in 4 weeks [id number] Bita Colorado MD [facility] [place] [address] [facility] [address] [place] [address] 09/22/2022 16:42:24 09/22/2022 17:31:56 Cobalamin deficiency 281130931 E53.8 Arthritis 5514674 M19.90 Iron defic iency anemia 92849291 D50.9 Vitamin D deficiency 347 52935 E55.9 Polymyalgi a rheumatica 77130792 M35.3 Cat scratch - wound 2831 70648 T14.8XXA significan t improvemen t on the original wound but new wounds with erythema and swelling and paincontin ue supportive careaugmen tin bid x 7 daysf/u in 2 weeks [id number] Bita Colorado MD [facility] [address] [place] [address] [address] [facility] [address] 10/06/2022 16:40:49 10/06/2022 18:12:52 Cat scratch - wound 527121013 T14.8XXA significan t improvemen t on the original wound but new wounds with erythema and swelling and paincontin ue supportive careaugmen tin bid x 7 daysf/u in 2 weeks 10/06/22: apply silvadene cream on 3 scabbed area Polymyalgi a rheumatica 16410356 M35.3 Chronic sinusitis 061106 00 J32.9 [id number] Bita Colorado MD [facility] [address] [place] [address] [address] [facility] [place] [address] 10/20/2022 16:48:00 10/20/2022 17:37:38 Edema of lower extremity 775514490 R60.0 elevatewat ch salt in dietfurose mide 20 mg 1-2 in AM prn Dysuria 53220003 R30.0 Cobalamin deficiency 190 870679 E53.8 Arthritis 5921040 M19.90 Iron defic iency anemia 73619056 D50.9 Vitamin D deficiency 347 11812 E55.9 Polymyalgi a rheumatica 16315039 M35.3 [id number] Bita Colorado MD [facility] [address] [place] [address] [facility] [place] [address] 11/09/2022 16:38:04 11/09/2022 18:01:39 Arthritis 0846374 M19.90 Polymyalgi a rheumatica 56979956 M35.3 Cat scratch - wound 2831 20349 T14.8XXA significan t improvemen t on the original wound but new wounds with erythema and swelling and paincontin ue supportive careaugmen tin bid x 7 daysf/u in 2 weeks 10/06/22: apply silvadene cream on 3 scabbed area 11/09/22 much improved Vaginitis 15507297 N76.0 Psoriasis 6700153 L40.9 sample given Chronic pain syndrome 37 7972396 G89.4 [id number] Bita Colorado MD [facility] Primary Care [address] [place] [address] 12/20/2022 15:25:06 12/20/2022 16:17:02 Edema of lower extremity 799110320 R60.0 stable Cobalamin deficiency 190 339715 E53.8 Arthritis 5565855 M19.90 Iron defic iency anemia 39535276 D50.9 Vitamin D deficiency 347 06410 E55.9 Polymyalgi a rheumatica 39082450 M35.3 Loss of hair 320272974 L 65.9 Seasonal a llergic rhinitis 641876724 J30.2 [id number] Bita Colorado MD [facility] Primary Care [address] [place] [address] 01/17/2023 16:51:53 01/19/2023 15:13:42 Bilateral shoulder joint pain 0877035617 [id number] M25.511 M25.512 home health PT/OT referral givenortho if no improvemen t Administra tion of influenza vaccine 34031418 Z23 Dysuria 43348304 R30.0 Bronchitis 67251791 J40 prednisone as abovesuppo rtive carecall/r eturn if no improvemen t in 1-2 days or sooner if neededrevi ewed s/s that warrant urgent/brandon rgent eval in meantime [id number] Bita Colorado MD [facility] Primary Care [facility] [address] [facility] [address] [facility] [place] [place] [address] 02/21/2023 11:28:57 02/21/2023 12:38:18 Edema of lower extremity 086509066 R60.0 Cobalamin deficiency 190 216880 E53.8 Arthritis 2926565 M19.90 Iron defic iency anemia 71011977 D50.9 Vitamin D deficiency 347 32104 E55.9 Polymyalgi a rheumatica 10931246 M35.3 Loss of hair 635447693 L 65.9 [id number] Bita Colorado MD [facility] Primary Care [facility] [address] [facility] [address] [place] [address] 05/23/2023 11:32:04 05/23/2023 12:12:28 Arthritis 9543911 M19.90 Cobalamin deficiency 190 441859 E53.8 COVID-19 052924652 U07.1 Edema of l ower extremity 140070051 R60.0 stable Iron defic iency anemia 51107785 D50.9 Vitamin D deficiency 347 40321 E55.9 Polymyalgi a rheumatica 20655356 M35.3 Loss of hair 420949146 L 65.9 Bilateral shoulder joint pain 4456132360 9907628 M25.511 M25.512 home health PT/OT referral givenortho if no improvemen t [id number] Bita Colorado MD [facility] Primary Care [address] [place] [address] 06/29/2023 11:44:32 06/29/2023 12:28:22 Polymyalgia rheumatica 63613098 M35.3 Anxiety 94593632 F41.9 Cobalamin deficiency 190 728785 E53.8 Arthritis 6412733 M19.90 Edema of l ower extremity 180606854 R60.0 stable Iron defic iency anemia [id number] D50.9 Vitamin D deficiency 347 22904 E55.9 Loss of hair 672389234 L 65.9 [id number] Bita Colorado MD [facility] Primary Care [facility] [address] [place] [address] 07/27/2023 16:26:04 07/27/2023 17:21:37 Polymyalgia rheumatica 20420678 M35.3 refill given Arthritis 8079455 M19.90 Cobalamin deficiency 190 367020 E53.8 Psoriasis 3628088 L40.9 insurance has denied otezlaotc creams not effective Itching of skin 37396149 0 L29.9 Candidal intertrigo 2661 14783 B37.2 Chronic ob structive pulmonary disease 43658034 J44.9 needs new nebulizerd uoneb up to 4x per day per neb prn cough/whee ze [id number] Bita Colorado MD [facility] Primary Care [facility] [address] [place] [address] 08/31/2023 16:40:06 08/31/2023 17:21:49 Polymyalgia rheumatica 58001304 M35.3 refill given Cobalamin deficiency 190 082040 E53.8 Arthritis 7489464 M19.90 Edema of l ower extremity 759327014 R60.0 stable Iron defic iency anemia 30332840 D50.9 Vitamin D deficiency 347 20144 E55.9 Loss of hair 043954974 L 65.9 Anxiety 38290562 F41.9 Dysuria 53395073 R30.0 Bronchitis 94496841 J40 prednisone supportive carecall/r eturn if no improvemen t in 1-2 days or sooner if neededrevi ewed s/s that warrant urgent/brandon rgent eval in meantime [id number] Bita Colorado MD [facility] Primary Care [facility] [address] [place] [address] 09/13/2023 14:02:24 09/13/2023 16:02:53 Chronic obstructive pulmonary disease 58729770 J44.9 needs new nebulizerd uoneb up to 4x per day per neb prn cough/whee ze Seasonal a llergic rhinitis 721553166 J30.2 Restless legs 60503904 G 25.81 Arthritis 3268773 M19.90 Anxiety 91155384 F41.9 Iron defic iency anemia 15350047 D50.9 [id number] KELSEA aGrcia [facility] Primary Care [facility] [address] [place] [address] 09/25/2023 13:58:57 09/25/2023 14:18:21 [id number] KELSEA Garcia [facility] Primary Care [facility] [address] [place] [address] 10/20/2023 14:00:44 10/20/2023 14:57:18 Polymyalgia rheumatica 91691245 M35.3 Screening for osteoporosis 345718324 Z13.820 Thyroid di sorder screening 335016434 Z13.29 Cobalamin deficiency 190 609607 E53.8 Arthritis 7727296 M19.90 Inadequate intake of vitamin D and/or vitamin D derivative 218418027 E55.9 Anemia screening 1709659 07 Z13.0 [id number] KELSEA Garcia [facility] Primary Care [facility] [address] [place] [address] 11/14/2023 12:16:59 12/11/2023 14:40:28 Anxiety 23557377 F41.9 Arthritis 4340211 M19.90 Chronic ob structive pulmonary disease 75919833 J44.9 Vitamin D deficiency 347 87170 E55.9 Gastroesop hageal reflux disease 450804032 K21.9 [id number] KELSEA Garcia [facility] Primary Care [facility] [address] [place] [address] 12/14/2023 17:48:09 12/26/2023 11:16:02 Anxiety 61624405 F41.9 Osteoarthritis 269827044 M19.90 Chronic ob structive pulmonary disease 63733142 J44.9 Gastroesop hageal reflux disease 264850239 K21.9 [id number] SAVANNA [facility] [address] [address] 01/04/2024 14:00:55 01/04/2024 17:28:26 [id number] Cadence Mike [facility] [address] [address] 02/01/2024 14:01:51 02/01/2024 15:59:37 [id number] Cadence Mike, HNP [facility] [address] [place] [address] 05/02/2024 14:11:13 05/02/2024 15:29:50 Goals Section Goal Description Status Start Date LastModified by Organization Details LastModified Time regular labs to check iron studies for infusions Goal not achieved 2023 Vanessa House RN Information not available 11/14/2023 16:08:25 Respiratory health Continue to maintain health at present w/o significant resp issues Goal not achieved 2023 Vanessa [facility] RN Information not available 09/14/2023 20:36:08 No Falls Pt will have no falls and maintain health Goal not achieved 2023 Vanessa House RN Information not available 12/14/2023 21:45:43 Mobility Maintains or improves baseline mobility and/or moves independently Goal not achieved 2023 Vanessa [facility] RN Information not available 12/14/2023 21:45:43 Activities of Daily Living Performs activities of daily living independently or with minimal assistance Goal not achieved 2023 Vanessa [facility] RN Information not available 11/14/2023 16:11:45 Adequate Sleep Achieves adequate, well-rested sleep with minimal disruption Goal not achieved 2023 Vanessa [facility] RN Information not available 11/14/2023 16:11:45 Exercise Regularly Follows a regular exercise regimen or instructed exercise plan as per care team recommendation( s) Goal not achieved 2023 Vanessa [facility] RN Information not available 11/14/2023 16:11:45 Stress Management Reports effective management of stress Goal not achieved 2023 Vanessa [facility] RN Information not available 11/14/2023 16:11:45 Quality of Life Reports satisfaction with quality of life Goal not achieved 2023 Vanessa [facility] RN Information not available 11/14/2023 16:11:45 Medication Regimen Follows medication regimen as per care team recommendation( s) Goal not achieved 2023 Vanessa [facility] RN Information not available 11/14/2023 16:11:45 Follow-up Appointment(s) Attends referral and/or follow-up appointment(s) as per care team recommendation( s) Goal not achieved 2023 Vanessa [facility] RN Information not available 11/14/2023 16:11:46 Effective Coping Manages life events with effective coping methods Goal not achieved 2023 Vanessa [facility] RN Information not available 12/14/2023 21:45:43 Diet Adherence Follows prescribed or recommended diet Goal not achieved 2023 Vanessa [facility] RN Information not available 11/14/2023 16:11:46 Knowledge of Disease or Condition Demonstrates understanding of disease(s) or condition(s) Goal not achieved 2023 Vanessa [facility] RN Information not available 11/14/2023 16:11:46 Home/Environment Safety Reports having a safe environment that promotes independence and prevents injury Goal not achieved 2023 Vanessa [facility] RN Information not available 11/14/2023 16:11:46 Effective Pain Management Reports or exhibits adequate pain relief as determined by appropriate pain scale Goal not achieved 2023 Vanessa [facility] RN Information not available 11/14/2023 16:11:46 Recreational Activities Participates in recreational activities Goal not achieved 2023 [facility]essa [facility] RN Information not available 11/14/2023 16:11:46 Balance Maintains or improves baseline balance Goal not achieved 2023 Vanessa [facility] RN Information not available 11/14/2023 16:11:46 Self-Advocacy Advocates effectively for self by communicating desires, feelings and concerns to care team Goal not achieved 2023 Vanessa [facility] RN Information not available 11/14/2023 16:11:46 Pain Management Plan Reports satisfaction with current pain management plan (e.g., medication and non-medication pain relief interventions) Goal not achieved 2023 Vanessa [facility] RN Information not available 11/14/2023 16:11:47 Adequate Housing Conditions Maintains adequate housing with satisfactory living conditions Goal not achieved 2023 [facility]essa [facility] RN Information not available 11/14/2023 16:11:47 Food Security Reports ability to access and obtain foods to meet nutritional needs Goal not achieved 2023 Vanessa [facility] RN Information not available 11/14/2023 16:11:47 Family and Social Support Reports family and/or social support needs are met Goal not achieved 2023 [facility]essa [facility] RN Information not available 11/14/2023 16:11:47 Financial Stability Reports financial status and/or income meets needs Goal not achieved 2023 [facility] RN Information not available 11/14/2023 16:11:47 Symptom Management Demonstrates ability to manage and/or control symptoms Goal not achieved 2023 [facility]essa [facility] RN Information not available 11/14/2023 16:11:47 Chronic Condition Action Plan Follows action plan for any worsening of chronic condition(s) as per care team recommendation( s) Goal not achieved 2023 Vanessa [facility] RN Information not available 12/14/2023 21:45:43 Smoking Cessation Quits smoking Goal not achieved 2023 [facility] RN Information not available 11/14/2023 16:11:48 Weight Maintenance Exhibits stable weight with normal fluctuation Goal not achieved 2023 Vanessa [facility] RN Information not available 11/14/2023 16:11:48 Reliable Transportation Reports having access to reliable transportation Goal not achieved 2023 Vanessa House RN Information not available 11/14/2023 16:11:48 Decreased Alcohol Consumption Reports decreased alcohol consumption as per care team recommendation( s) Goal not achieved 2023 [facility]essa [facility] RN Information not available 11/14/2023 16:11:48 Weight Loss Decreases body weight as per care team recommendation( s) Goal not achieved 2023 [facility] RN Information not available 11/14/2023 16:11:48 Diagnostic Testing Completes diagnostic testing as per care team recommendation( s) Goal not achieved 2023 Vanessa [facility] RN Information not available 11/14/2023 16:11:48 Lab Testing Completes lab testing as per care team recommendation( s) Goal not achieved 2023 [facility] RN Information not available 11/14/2023 16:11:49 Family and Social Support Reports family and/or social support needs are met Goal not achieved 2023 [facility]essa [facility] RN Information not available 11/14/2023 16:13:59 Caregiver Education and/or Support Reports being supported in caregiver role Goal not achieved 2023 [facility]essa [facility] RN Information not available 11/14/2023 16:13:59 Mobility Maintains or improves baseline mobility and/or moves independently Goal not achieved 2023 [facility]essa [facility] RN Information not available 11/14/2023 16:13:59 Posture Improvement Demonstrates improvement in posture Goal not achieved 2023 Vanessa [facility] RN Information not available 11/14/2023 16:13:59 Home/Environment Safety Reports having a safe environment that promotes independence and prevents injury Goal not achieved 2023 [facility] RN Information not available 12/14/2023 21:45:43 Active Range of Motion Demonstrates normal or improved active range of motion as defined by care team Goal not achieved 2023 [facility]essa [facility] RN Information not available 11/14/2023 16:14:00 Self-Advocacy Advocates effectively for self by communicating desires, feelings and concerns to care team Goal not achieved 2023 [facility]essa [facility] RN Information not available 11/14/2023 16:14:00 Bone Fractures Risk Reduction Demonstrates reduction in risks for bone fractures Goal not achieved 2023 Vanessa [facility] RN Information not available 12/14/2023 21:45:43 Assistive/Adapti ve Devices Uses assistive/adapt guillermo devices properly and safely as per care team recommendation( s) Goal not achieved 2023 Vanessa [facility] RN Information not available 11/14/2023 16:14:01 Fall Safety Reports no recent falls and/or fall injuries Goal not achieved 2023 Vanessa [facility] RN Information not available 12/14/2023 21:45:43 Strength and Conditioning Achieves improved strength and conditioning as defined by care team Goal not achieved 2023 Vanessa [facility] RN Information not available 11/14/2023 16:14:01 Balance Maintains or improves baseline balance Goal not achieved 2023 Vanessa [facility] RN Information not available 12/14/2023 21:45:43 Quality of Life Reports satisfaction with quality of life Goal not achieved 2023 [facility]essa [facility] RN Information not available 11/14/2023 16:14:02 Exercise Regularly Follows a regular exercise regimen or instructed exercise plan as per care team recommendation( s) Goal not achieved 2023 Vanessa [facility] RN Information not available 12/14/2023 21:45:43 Effective Coping Manages life events with effective coping methods Goal not achieved 2023 [facility]essa [facility] RN Information not available 11/14/2023 16:14:02 Smoking Cessation Quits smoking Goal not achieved 2023 Vanessa [facility] RN Information not available 11/14/2023 16:14:02 Adequate Sleep Achieves adequate, well-rested sleep with minimal disruption Goal not achieved 2023 [facility]essa [facility] RN Information not available 12/14/2023 21:45:43 Activities of Daily Living Performs activities of daily living independently or with minimal assistance Goal not achieved 2023 [facility]essa [facility] RN Information not available 12/14/2023 21:45:43 Medication Regimen Follows medication regimen as per care team recommendation( s) Goal not achieved 2023 [facility] RN Information not available 12/14/2023 21:45:43 Recreational Activities Participates in recreational activities Goal not achieved 2023 [facility]essa [facility] RN Information not available 11/14/2023 16:14:03 Follow-up Appointment(s) Attends referral and/or follow-up appointment(s) as per care team recommendation( s) Goal not achieved 2023 [facility]essa [facility] RN Information not available 11/14/2023 16:14:03 Decreased Alcohol Consumption Reports decreased alcohol consumption as per care team recommendation( s) Goal not achieved 2023 [facility]essa [facility] RN Information not available 11/14/2023 16:14:03 Effective Pain Management Reports or exhibits adequate pain relief as determined by appropriate pain scale Goal not achieved 2023 [facility]essa [facility] RN Information not available 12/14/2023 21:45:43 Healthy Weight Maintain a healthy body weight as recommended by your care team Goal not achieved 2023 Vanessa [facility] RN Information not available 11/14/2023 16:14:03 Substance Cessation Reduces or avoids substance use Goal not achieved 2023 Vanessa [facility] RN Information not available 11/14/2023 16:14:04 Health Concerns Section Related Observation LastModified by Organization Detai ls LastModified Time None Recorded Concern Status LastModified by Organization Details LastModified Time Anxiety Active Vanessa House RN Not Available 09/14/2023 20:36:08 Chronic obstructive lung disease Active Vanessa House RN Not Available 09/14/2023 20:35:11 Arthritis Active Vanessa House RN Not Available 09/14/2023 20:36:51 Osteoarthritis Active Vanessa House RN Not Available 12/14/2023 21:45:43 Cobalamin deficiency Active Vanessa perez RN Not Available 11/14/2023 16:09:04 Gastroesophageal reflux disease Active Vanessa House RN Not Available 11/14/2023 16:09:54 Anemia Inactive Vanessa House RN Not Available 11/14/2023 16:07:56 Advance Directives Directive N: pt states she has it in h er head and her children know what you want. Payers Encounter Date Sequence Insurance Name Policy Number Policy Best Covered Member ID Best Member ID Guarantor Name 09/13/2023 1 [facility] - MEDICARE COMPLETE PLUS PLAN 1 HMO (REPLACEMENT POS) [id number] Sarah Milner [id number] Sarah Arriaga James Milner 09/13/2023 2 [place]ARE OR MEDICARE REPLACEMENT PRIMARY) Sarah Rekha blair [id number] Sarah Arriaga James Milner 09/25/2023 1 [facility] MEDICARE COMPLETE PLUS PLAN 1 HMO (REPLACEMENT POS) [id number] Sarah Arriaga James Milner [id number] Sarah Arriaga James Milner 09/25/2023 2 [place] OR MEDICARE REPLACEMENT PRIMARY) Sarah Rekha blair [id number] Sarah Arriaga James Milner 10/20/2023 1 [employer] - [employer] - [employer] - MEDICARE COMPLETE PLUS PLAN 1 HMO (REPLACEMENT POS) [id number] Sarah Arrigaa James Milner [id number] Sarah Arriaga James Milner 10/20/2023 2 [place] OR MEDICARE REPLACEMENT PRIMARY) Sarah blair [id number] Sarah Arriaga James Milner 11/14/2023 1 [facility] MEDICARE COMPLETE PLUS PLAN 1 HMO (REPLACEMENT POS) [id number] Sarah Arriaga James Milner [id number] Sarah Arriaga James Milner 11/14/2023 2 [place] OR MEDICARE REPLACEMENT PRIMARY) Sarah Rekha blair [id number] Sarah Arriaga James Milner 12/14/2023 1 [facility] MEDICARE COMPLETE PLUS PLAN 1 HMO (REPLACEMENT POS) [id number] Sarah Arriaga James Milner [id number] Sarah Arriaga James Milner 12/14/2023 2 [place] WHEN [place] OR MEDICARE REPLACEMENT PRIMARY) Sarah blair [id number] Sarah Arriaga James Milner Notes Date Note Type Note Provider Name and Address Organization Details Recorded Time 09/13/2023 text/html psoriasis is triston y bothersome to her, topicals don't seem to work well and insurance would not cover otezla. She is very itchy all the time. She has chronic irritation under breasts and skin folds, she try to keep these areas dry. She is requesting refill for her pain meds, she takes only as prescribed. Needs new nebulizer machine, she uses duoneb up to 4x per day when COPD flares. +wheezing. 08/31/23: psoriasis improving after injection by dermatology. Having wheezing, cough with sputum production. 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 Rudeness and refusal to refill scripts KELSEA Garcia [address], [place], [address], [employer] 12/20/2023 16:01:24 OBGyn Episode No OBEpisode recorded.
[2024-05-20 13:20] LABS: Basophils Absolute Auto 0.1 K/mm3 (0.0-0.1); Basophils Percent Auto 0.7 % (0.2-1.2); Eosinophils Absolute Auto 0.9 K/mm3 (0-0.3); Eosinophils Percent Auto 6.6 % (0-4.4); Immature Granulocyte Absolute 0.24 K/mm3 (0.00-0.031); Immature Granulocyte Percent A 1.7 % (0-0.5); Lymphocytes Percent Auto 13.5 % (18.3-44.2); Mean Corpuscular HGB Conc 29.4 g/dl (32-36); Mean Corpuscular Volume 81.5 fl (80-100); Mean Platelet Volume 9.4 fl (7.4-10.4); Neutrophils Absolute Auto 9.9 K/mm3 (1.3-6.7); Neutrophils Percent Auto 70.5 % (45.5-73.1); Platelet Count Result 346 k/mm3 (150-375); Red Blood Count 4.17 M/mm3 (4.2-5.4); Red Cell Distribution Width 18.2 % (11.5-14.5)
[2024-05-20 13:29] LABS: Alanine Aminotransferase 10 U/L (6-35); Albumin Level 3.4 g/dL (3.5-5.1); Alkaline Phosphatase 94 U/L (38-126); Anion Gap 8 mmol/L (4-12); Aspartate Amino Transferase 13 U/L (14-36); Bilirubin,Total 0.4 mg/dL (0.2-1.3); Blood Urea Nitrogen 18 mg/dL (7-17); Carbon Dioxide 24 mmol/L (22-30); Chloride 110 mmol/L (98-107); Estimated Glomerular Filt Rate > 60; Glucose 110 mg/dL (65-110); Potassium 3.8 mmol/L (3.4-5.0); Sodium 142 mmol/L (137-145)
[2024-05-20 13:37] LABS: Iron 35 ug/dL (37-170)
[2024-05-20 13:43] LABS: Anisocytosis 1+; Ovalocytes 1+; Platelet Estimate Adequate (Adequate); Schistocytes None Seen
[2024-05-20 13:46] LABS: Percent Iron Saturation 14 % (20-50)
[2024-05-20 14:09] LABS: Thyroid Stimulating Hormone Reflex 0.975 uIU/mL (0.465-4.68)
[2024-05-20 14:39] LABS: Folic Acid > 20.0 ng/mL (2.76->20)
== END 2024-05-20 12:38 | disposition home or self-care (01) ==
PROVIDERS: PCP Family Medicine; Visit Provider Family Medicine
DX: D64.9 Anemia, unspecified (principal); R53.83 Other fatigue; R79.89 Other specified abnormal findings of blood chemistry; G56.91 Unspecified mononeuropathy of right upper limb
CPT/HCPCS: 36415; 80053; 82607; 82728; 82746; 83540; 83550; 84443; 85025

== ENCOUNTER 2024-12-31 15:22 | Outpatient (CLI) | payer MEDICARE, MEDICAID, SELFPAY ==
--- NOTE | ~2024-12-31 | XR_ITS ---
EXAMINATION: [id number], 12/31/2024 15:40 CDT HISTORY: Left knee pain COMPARISON: No comparisons available. Findings: No acute fracture or malalignment. Severe tricompartmental degenerative changes with small effusion Soft tissues unremarkable. Impression: No acute fracture or malalignment. Reviewed, dictated and finalized at location A. Impression: No acute fracture or malalignment.
== END 2024-12-31 15:23 | disposition home or self-care (01) ==
LOC: MICIMG 15:24
PROVIDERS: PCP Family Medicine; Visit Provider Nurse Practitioner Family
DX: M25.562 Pain in left knee (principal)
CPT/HCPCS: 73560

== ENCOUNTER 2025-02-03 02:28 | Day surgery (SDC) | payer MEDICARE, MEDICAID, SELFPAY ==
[2025-01-24 10:37] VITALS: BMI 33.5
--- NOTE | 2025-01-24 11:49 | PC.NURSE ---
Pt unable to afford miralax prep. 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 Suflav instructions emailed to pt. Pt was seen last week by PCP for an URI. Hx of COPD and is currently on a 5 day steroid regimen. Clearance faxed to Dr. Lu.
--- NOTE | 2025-02-03 11:16 | WPDANESEPPF ---
Anes - Initial Pre Proc Eval Procedure: Operation Date: 02/03/25 12:30 Proposed Procedures p Diagnostic Colonoscopy - Ubaldo Schrader MD Date/Time: 02/03/25 11:16 Surgeon: Ubaldo Schrader MD Pre Op Diagnosis: Other fecal abnormalities Patient Data Age: 69 Gender: F Height: 1.8 m Weight: 109 kg Allergies Allergy/AdvReac Type Severity Reaction Status Date / Time morphine Allergy Unknown Unknown Verified 02/03/25 11:14 moxifloxacin Allergy Unknown Unknown Verified 02/03/25 11:14 nitrofurantoin Allergy Unknown Unknown Verified 02/03/25 11:14 Sulfa (Sulfonamide Allergy Unknown Unknown Verified 02/03/25 11:14 Antibiotics) Dryer Sheets Allergy Mild rash Uncoded 01/24/25 10:18 Home Medications ?Medication ?Instructions ?Recorded ?Confirmed ?Type cyanocobalamin (vitamin B-12) 1,000 mcg IM MONTHLY #1 mL 12/28/23 02/03/25 Rx 1,000 mcg/mL injection solution calcium carbonate (Calcium 500) 500 mg PO DAILY 01/30/24 02/03/25 History folic acid 0.8 mg capsule 0.8 mg PO DAILY 01/30/24 02/03/25 History alprazolam 0.5 mg tablet 0.5 mg PO BID 02/16/24 02/03/25 History cholecalciferol (vitamin D3) 10 10 mcg PO DAILY 03/18/24 02/03/25 History mcg (400 unit) capsule (Vitamin D3) tapinarof 1 % topical cream (Vtama) 1 applic topical DAILY #60 grams 05/08/24 01/24/25 Rx mirabegron 50 mg tablet,extended 50 mg PO DAILY #90 tabs 06/10/24 02/03/25 Rx release 24 hr (Myrbetriq) montelukast 10 mg tablet 10 mg PO DAILY #90 tabs 06/10/24 02/03/25 Rx escitalopram oxalate 20 mg tablet 10 mg PO BID 08/15/24 02/03/25 History (Lexapro) turmeric curcumin PO 08/15/24 01/23/25 History ciclopirox 8 % topical solution 1 applic topical QHS 4 weeks #6.6 09/23/24 01/24/25 Rx mL esomeprazole magnesium 40 mg 40 mg PO DAILY #90 caps 09/23/24 02/03/25 Rx capsule,delayed release ondansetron 4 mg disintegrating 4 mg PO Q8H PRN nausea and 09/23/24 01/24/25 Rx tablet vomiting #30 tabs dicyclomine 20 mg tablet See Rx Instructions .Route 12/02/24 01/24/25 Rx .COMPLEX #90 tabs cephalexin 500 mg capsule 500 mg PO Q8H 12/24/24 01/24/25 History etodolac 500 mg tablet See Rx Instructions .Route 12/24/24 01/24/25 Rx .COMPLEX #180 tabs albuterol sulfate 90 mcg/actuation See Rx Instructions .Route 01/07/25 01/24/25 Rx aerosol inhaler .COMPLEX #7 grams tiotropium 2.5 mcg-olodaterol 2.5 See Rx Instructions .Route 01/07/25 01/24/25 Rx mcg/actuation mist for inhalation .COMPLEX #4 grams (Stiolto Respimat) oxycodone-acetaminophen 10 mg-325 1 tablet PO Q8H #90 tabs 01/14/25 02/03/25 Rx mg tablet ondansetron 4 mg disintegrating 4 mg PO Q6H PRN nausea and 01/24/25 Rx tablet vomiting #4 tabs risankizumab-rzaa 150 mg/mL 150 mg subcut .q 3 months 01/24/25 01/24/25 History subcutaneous pen injector (Skyrizi) tizanidine 4 mg tablet See Rx Instructions .Route 02/03/25 Rx .COMPLEX #90 tabs Patient hx anesthesia problems: none Family hx anesthesia problems: none Results Review: All pre-operative results and documents have been reviewed as part of the pre-operative evaluation. [facility] Past Medical History Medical History Neuropathy of right upper extremity Anxiety Depression GERD (gastroesophageal reflux disease) IBS (irritable bowel syndrome) COPD (chronic obstructive pulmonary disease) TIA (transient ischemic attack) Surgical History Surgical History History of arthroplasty of right knee 2013 H/O tubal ligation Social History Social History Social History: History of tobacco abuse Smoking status: Current every day smoker Tobacco type: cigarettes Additional smoking assessment comments: 5-6 cigarettes/day. Makes own. Alcohol intake: never Substance use: never Substance use type: does not use Other substance usage details: Occasional Gummy, Marijuana as teen Anes - Eval Final PreProcedure Day of Procedure 02/03/25 11:16 Patient weight: obese Heart: regular rate and rhythm Lungs: clear to auscultation Airway: Mallampati scale class II Neurological: alert and oriented Last oral intake: >/= 8 hours ASA classification: III Emergent: no Anesthetic plan: proceed Anesthesia type and monitoring: general GIVS and standard monitoring Results Review: All pre-operative results and documents have been reviewed as part of the pre-operative evaluation. Informed Consent: The patient's anesthetic plan and its attendant risks and benefits were discussed with the patient/family/POA. Questions were solicited and answers provided to the satisfaction of the patient/family/POA.
[2025-02-03 11:17] VITALS: BP 136/77; PULSE 89; RESP 18; TEMP 36.6; O2SAT 98
[2025-02-03] MEDS: LACTATED RINGERS 1,000 ML 150 ML IV CONT (11:27)
--- NOTE | 2025-02-03 12:11 | PM.HPGS ---
History of Present Illness History of Present Illness Consent: Risks, benefits, and alternatives have been discussed and questions answered. Patient agrees to proceed with procedure. Chief complaint: Other fecal abnormalities Narrative: Sarah Milner is a 69 year old female here for first screening colonoscopy, + cologuard Review of Systems Review of Systems: All systems reviewed & are unremarkable except as noted in HPI and below PMFSH Past Medical History Medical History Neuropathy of right upper extremity Anxiety Depression GERD (gastroesophageal reflux disease) IBS (irritable bowel syndrome) COPD (chronic obstructive pulmonary disease) TIA (transient ischemic attack) Surgical History Surgical History History of arthroplasty of right knee 2013 H/O tubal ligation Social History Social History Social History: History of tobacco abuse Smoking status: Current every day smoker Tobacco type: cigarettes Additional smoking assessment comments: 5-6 cigarettes/day. Makes own. Alcohol intake: never Substance use: never Substance use type: does not use Other substance usage details: Occasional Gummy, Marijuana as teen Meds Home Medications and Allergies Home Medications ?Medication ?Instructions ?Recorded ?Confirmed ?Type cyanocobalamin (vitamin B-12) 1,000 mcg IM MONTHLY #1 mL 12/28/23 02/03/25 Rx 1,000 mcg/mL injection solution calcium carbonate (Calcium 500) 500 mg PO DAILY 01/30/24 02/03/25 History folic acid 0.8 mg capsule 0.8 mg PO DAILY 01/30/24 02/03/25 History alprazolam 0.5 mg tablet 0.5 mg PO BID 02/16/24 02/03/25 History cholecalciferol (vitamin D3) 10 10 mcg PO DAILY 03/18/24 02/03/25 History mcg (400 unit) capsule (Vitamin D3) tapinarof 1 % topical cream (Vtama) 1 applic topical DAILY #60 grams 05/08/24 01/24/25 Rx mirabegron 50 mg tablet,extended 50 mg PO DAILY #90 tabs 06/10/24 02/03/25 Rx release 24 hr (Myrbetriq) montelukast 10 mg tablet 10 mg PO DAILY #90 tabs 06/10/24 02/03/25 Rx escitalopram oxalate 20 mg tablet 10 mg PO BID 08/15/24 02/03/25 History (Lexapro) turmeric curcumin PO 08/15/24 01/23/25 History ciclopirox 8 % topical solution 1 applic topical QHS 4 weeks #6.6 09/23/24 01/24/25 Rx mL esomeprazole magnesium 40 mg 40 mg PO DAILY #90 caps 09/23/24 02/03/25 Rx capsule,delayed release ondansetron 4 mg disintegrating 4 mg PO Q8H PRN nausea and 09/23/24 01/24/25 Rx tablet vomiting #30 tabs dicyclomine 20 mg tablet See Rx Instructions .Route 12/02/24 01/24/25 Rx .COMPLEX #90 tabs cephalexin 500 mg capsule 500 mg PO Q8H 12/24/24 01/24/25 History etodolac 500 mg tablet See Rx Instructions .Route 12/24/24 01/24/25 Rx .COMPLEX #180 tabs albuterol sulfate 90 mcg/actuation See Rx Instructions .Route 01/07/25 01/24/25 Rx aerosol inhaler .COMPLEX #7 grams tiotropium 2.5 mcg-olodaterol 2.5 See Rx Instructions .Route 01/07/25 01/24/25 Rx mcg/actuation mist for inhalation .COMPLEX #4 grams (Stiolto Respimat) oxycodone-acetaminophen 10 mg-325 1 tablet PO Q8H #90 tabs 01/14/25 02/03/25 Rx mg tablet ondansetron 4 mg disintegrating 4 mg PO Q6H PRN nausea and 01/24/25 Rx tablet vomiting #4 tabs risankizumab-rzaa 150 mg/mL 150 mg subcut .q 3 months 01/24/25 01/24/25 History subcutaneous pen injector (Skyrizi) tizanidine 4 mg tablet See Rx Instructions .Route 02/03/25 Rx .COMPLEX #90 tabs Allergies Allergy/AdvReac Type Severity Reaction Status Date / Time morphine Allergy Unknown Unknown Verified 02/03/25 11:14 moxifloxacin Allergy Unknown Unknown Verified 02/03/25 11:14 nitrofurantoin Allergy Unknown Unknown Verified 02/03/25 11:14 Sulfa (Sulfonamide Allergy Unknown Unknown Verified 02/03/25 11:14 Antibiotics) Dryer Sheets Allergy Mild rash Uncoded 01/24/25 10:18 Vital Signs Vital Signs - 24 hr 02/03/25 11:17 Temperature 97.9 F Pulse Rate 89 Respiratory Rate 18 Blood Pressure 136/77 Pulse Oximetry 98 Oxygen Delivery Room Air Exam Const: General: comfortable and no acute distress HENMT: Face/Nose/Sinus: Normal nares present Eyes: General: appearance normal, both eyes and all related structures Neck: Neck: no JVD Resp: Auscultation: clear to auscultation bilaterally Cardio: Rate: regular rate Rhythm: regular rhythm GI: Inspection: non-distended GI Palp: Yes Soft to palpation Skin: General skin exam: normal color Extrem: General: normal to inspection Psych: Mental Status: mental status grossly normal Assessment and Plan Assessment and plan (1) Positive colorectal cancer screening using Cologuard test: Code(s): R19.5 - Other fecal abnormalities Status: Acute Assessment and Plan: colonoscopy
[2025-02-03 12:26] VITALS: BP 112/43; PULSE 82; RESP 33; O2SAT 98
[2025-02-03 12:36] VITALS: BP 115/48; PULSE 77; RESP 26; O2SAT 100
[2025-02-03 12:46] VITALS: BP 119/51; PULSE 71; RESP 19; O2SAT 100
== END 2025-02-03 13:06 | disposition home or self-care (01) ==
PROVIDERS: PCP Family Medicine; Referring Provider Nurse Practitioner Family; Visit Provider Internal Medicine Gastroenterology
PROC: 0DJD8ZZ Inspection of Lower Intestinal Tract, Via Natural or Artificial Opening Endoscopic (ICD-10-PCS; CPT 45378; principal; 2025-02-03 12:30)
DX: R19.5 Other fecal abnormalities (principal); K64.8 Other hemorrhoids; K57.30 Diverticulosis of large intestine without perforation or abscess without bleeding; K21.9 Gastro-esophageal reflux disease without esophagitis; K58.9 Irritable bowel syndrome, unspecified; J44.9 Chronic obstructive pulmonary disease, unspecified; F41.9 Anxiety disorder, unspecified; F32.A Depression, unspecified; F17.210 Nicotine dependence, cigarettes, uncomplicated; F12.90 Cannabis use, unspecified, uncomplicated; E66.9 Obesity, unspecified; Z68.33 Body mass index [BMI] 33.0-33.9, adult; Z79.51 Long term (current) use of inhaled steroids; Z79.891 Long term (current) use of opiate analgesic; Z79.85 Long-term (current) use of injectable non-insulin antidiabetic drugs; Z98.890 Other specified postprocedural states; Z98.51 Tubal ligation status; Z86.73 Personal history of transient ischemic attack (TIA), and cerebral infarction without residual deficits
CPT/HCPCS: 45378; J2704; J7120